=== PATIENT | male | born 1955 | race Caucasian/White ===

== ENCOUNTER 2019-04-07 10:41 | Inpatient (IN) ==
--- NOTE | 2019-03-24 11:26 | Anesthesiology Consultation ---
Date of Service March 24, 2019 Assessment & Plan Chart Review Chart Review: Acceptable Risk for Surgery and Patient NOT seen in Pre Admission Testing Consults Requested medical & cardiac ASA ASA4 Proposed Anesthesia Anesthesia Type: General Anesthesia Line Insertion: Arterial line History Surgery Operation Date: 04/02/19 11:30 Proposed Procedures p Robotic Right Video Assisted Thoracoscopy with Right Lower Lobectomy and Mediastinal Lymphadenectomy - Ethan Byers MD, FACS Height/Weight Height: 5 ft 9 in Weight: 56.245 kg Allergies Allergy/AdvReac Type Severity Reaction Status Date / Time No Known Drug Allergies Allergy Verified 03/24/19 08:34 chocolate AdvReac Mild nose bleeds Uncoded 03/24/19 08:34 Medications Home Medications Medication Instructions Recorded Confirmed Last Taken metoprolol succinate 25 mg PO HS 09/04/18 03/24/19 01/31/19 06:30 lisinopril 10 mg PO QAM 09/26/18 03/24/19 01/30/19 09:00 Antacid 1 dose PO QAM 03/24/19 03/24/19 Unknown Past Medical History Medical History Anemia Chronic obstructive pulmonary disease Depression ETOH abuse HX (Per admission record from 07/2018, pt reported 10-20 beers daily. Heavily counseled on quitting at discharge. Reports quit 07/2018) GERD (gastroesophageal reflux disease) GI bleed 07/2018; S/P INPATIENT EGD/COLONOSCOPY; "RESOLVED" Hearing deficit [place]; no WATTS Hypertension Hyponatremia CHRONIC Lung cancer Stomach ulcer Exercise / Class Metabolic Activity III < 4 Walking/Shop/Light housework Past Family History Family History Other Family history non-contributory Past Surgical History Surgical History History of bronchoscopy WITH BIOPSY (01/2019) AT [facility] History of colonoscopy History of esophagogastroduodenoscopy (EGD) Past Anesthesia History No Hx of Anesthesia Complications and No Family Hx of Anesthesia Complications History of PONV No Hx of PONV and No Hx of Motion Sickness Social History Smoking Status: Current every day smoker tobacco type: cigarettes Smoking cigarettes per day: 1 PPD Do You Dip or Chew Tobacco: No Hx Alcohol Use: Yes (H/O ALCOHOLISM; QUIT 07/2018) Alcohol type: beer alcohol intake frequency: 3 or more drinks per day Hx Substance Use: No substance use type: does not use Testing Electrocardiogram Date: 07/23/18 Findings: + ST @ (at 132;PAC's) Chest X-Ray Date: 01/31/19 Findings: + infiltrate (right lower lung airspace opacity) emphysema
[~2019-04-07 10:41] MED LIST: LR 15ML/HR IV SCH
[2019-04-07] MEDS ORDERED: LR 15ML/HR IV SCH (11:00)
[2019-04-07] MEDS ORDERED: MIDAZOLAM HCL 1 MG/ML 2ML VIAL ONE (11:50)
[2019-04-07] MEDS ORDERED: fentaNYL citrate 100 MCG/2 ML VIAL ONE ×3 (11:50→16:55)
--- NOTE | 2019-04-07 13:03 | History & Physical Bridge Note ---
Date of Service April 07, 2019 History & Physical Bridge Note I have examined the patient, reviewed the History & Physical and in the interval since the performance of the History & Physical I have noted the following changes of clinical significance: no changes noted
[2019-04-07] MEDS ORDERED: KETOROLAC 30 MG/ML VIAL IV PRN (13:07)
[2019-04-07] MEDS ORDERED: LABETALOL HCL IV 5 MG/ML 20ML IV PRN (13:07)
[2019-04-07] MEDS ORDERED: HYDROmorphone INJ 1 MG/ML SYRINGE IV PRN (13:07)
[2019-04-07] MEDS ORDERED: ATROPINE SULFATE 0.1 MG/ML 10ML SYR IV PRN (13:07)
[2019-04-07] MEDS ORDERED: ONDANSETRON INJ 2 MG/ML 2 ML VIAL IV PRN ×2 (13:07→19:39)
[2019-04-07] MEDS ORDERED: CEFAZOLIN 1000MG 1,000 MG/7.5 ML SYR IV STA (13:13)
[2019-04-07] MEDS ORDERED: LIDOCAINE 2% JELLY 5 ML TUBE ONE (13:14)
[2019-04-07] MEDS ORDERED: CEFAZOLIN 1,000 MG/7.5 ML IV PUSH IV ONE (13:15)
[2019-04-07] MEDS ORDERED: BUPIVACAINE 0.5 % 5 MG/1 ML MPF 30ML VIAL ONE (13:24)
[2019-04-07] MEDS ORDERED: BUPIVACAINE LIPOSOME 1.3% 266 MG/20 ML VIAL ONE (13:25)
[2019-04-07] MEDS ORDERED: SODIUM CHLORIDE 0.9% PF 50 ML VIAL ONE (13:25)
[2019-04-07] MEDS ORDERED: PROPOFOL IV EMULSION 10 MG/ML 20 ML VIAL IV ONE (14:40)
[2019-04-07] MEDS ORDERED: LIDOCAINE HCL 2% 2 ML VIAL/AMP(20MG/ML) INFIL ONE (14:40)
[2019-04-07] MEDS ORDERED: ONDANSETRON INJ 2 MG/ML 2 ML VIAL ONE (14:40)
[2019-04-07] MEDS ORDERED: DEXAMETHASONE SOD INJ 4 MG/ML VIAL ONE (14:40)
[2019-04-07] MEDS ORDERED: ROCURONIUM BROMIDE 10 MG/ML 5 ML VIAL ONE ×2 (14:40→15:07)
[2019-04-07] MEDS ORDERED: SODIUM CHLORIDE 0.9% INJ 10 ML VIAL ONE ×2 (16:43)
[2019-04-07] MEDS ORDERED: CEFAZOLIN 250 MG/ML 1 GM VIAL ONE (16:43)
[2019-04-07] MEDS ORDERED: GLYCOPYRROLATE 0.2 MG/ML VIAL ONE (16:55)
[2019-04-07] MEDS ORDERED: NEOSTIGMINE METHYLSULFATE 5 MG/5 ML SYR ONE (16:55)
--- NOTE | 2019-04-07 17:44 | Post Operative Brief Note ---
Immediate Post Op Note v1 Date of Surgery April 07, 2019 Pre & Post Diagnosis Operation Date: 04/07/19 12:00 Pre-Op Diagnosis: Non-Small Lung Cancer, Right Lower Lobe Post-Op Diagnosis: Non-Small Lung Cancer, Right Middle and Lower Lobe Procedure Operation Date: 04/07/19 12:00 Actual Procedures p Robotic Right Video Assisted Thoracoscopy with Right Middle and Lower BiLobectomy and Mediastinal Lymphadenectomy(Right) - Ethan Byers MD, FACS Surgeon Ethan Byers MD, FACS Travel Med Surg Rn April JAMES Estimated Blood Loss 50 Findings Consistent with Post-Op Diagnosis Drains Chest Tube (24Fr) and Barrow Catheter (discontinued at end of case)
[2019-04-07] MEDS ORDERED: METOCLOPRAMIDE HCL INJ 5 MG/ML 2 ML VIAL IV ONE (18:15)
--- NOTE | 2019-04-07 18:17 | XRay Report ---
XR chest 1V portable HISTORY: 63 years-old Male right bi-lobectomy status post right lobectomy COMPARISON: Chest radiograph 01/31/2019, PET CT 01/06/2019 TECHNIQUE: Portable AP view of the chest FINDINGS: Cardiac silhouette is normal in size. Postoperative changes of the right lung with right-sided chest tube terminating adjacent to the right lung apex. Suspected tiny right apical pneumothorax with pleur al separation of approximately 3 mm. Small right pleural effusion with right midlung and right lung b ase opacities. Subcutaneous emphysema noted about the lateral right chest wall. Emphysema with biapic al pleural-parenchymal scarring. Degenerative changes of the shoulders and spine. IMPRESSION: 1. Postoperative changes of the right lung with right-sided chest tube terminating adjacent to the ri ght lung apex. Suspected tiny right apical pneumothorax. 2. Small right pleural effusion with right midlung and right lung base opacities. 3. Emphysema. The above report was generated using voice recognition software. It may contain grammatical, syntax o r spelling errors. Electronically signed by: Reid Valle M.D. 04/07/2019 6:16 PM
[2019-04-07] MEDS ORDERED: PHENYLEPHRINE HCL 10 MG/ML VIAL ONE (18:33)
[2019-04-07] MEDS ORDERED: ePHEDrine sulfate 50 MG/ML SYR ONE (18:33)
[2019-04-07] MEDS ORDERED: PHENYLEPHRINE 100MCG/ML 5ML SYR ONE (18:33)
[2019-04-07] MEDS ORDERED: HYDROmorphone INJ 1 MG/ML SYRINGE ONE (18:40)
--- NOTE | 2019-04-07 18:59 | Anesthesiology Progress Note ---
Date of Service April 07, 2019 Anesthesia Post Procedure Vital Signs Vital Signs: Temp Pulse Pulse Resp BP Pulse Ox 04/07/19 18:50 36.4 C L 74 22 133/80 94 04/07/19 18:40 36.4 C L 70 22 135/92 95 04/07/19 18:30 75 19 143/90 H 98 04/07/19 18:20 80 19 144/97 H 98 04/07/19 18:12 35.5 C L 83 18 156/103 H 100 04/07/19 11:33 36.6 C 78 22 184/107 H 98 Pain Intensity Right Chest: Pain Intensity: 3 Transfer of Care Handoff Completed per policy Notes Mental Status: alert / awake / arousable Patient Amnestic to Procedure: Yes Nausea / Vomiting: adequately controlled Pain: adequately controlled Airway Patency, RR, SpO2: stable & adequate BP & HR: stable & adequate Hydration State: stable & adequate Anesthetic Complications: no major complications apparent and Pt Satisfied with anesthetic care Notes: The patient is awake and his vitals are stable in the PACU.
[2019-04-07] MEDS ORDERED: MoRPHine SULFATE 2 MG/ML CARP IV PRN (19:39)
--- NOTE | 2019-04-07 20:30 | Consultation ---
Date of Consultation April 07, 2019 Assessment & Plan (1) Encounter for postoperative care: 63 y/o M Hx prior ETOH abuse, PUD, HTN, COPD, avid smoker, recent Dx of squamous cell lung CA. Post R lower and mid bilobectomy. The pt is recovering well in the post-op period. He denies CP, SOB, nausea, vomiting, fevers or excessive pain at the surgical site. He was apparently hypothermic post-op as he is on a warming blanket although his temp has since normalized. 1) Post-op - A chest tube is placed and a small post-op pneumothorax is reported on CXR. This will be managed by the thoracic service. Presently his pain is well controlled. Anticoagulation and/or ambulation at the earliest allowable time as he is high risk for DVT 2) COPD - no evidence of exacerbation - PRN inhalers, 02 protocol. 3) HTN - cont Metoprolol lesli-op - hold Lisinopril pending AM labs and assessment 4) PUD - cont PPi 5) Lung CA - f/u with oncology as outpt 6) Hypothermia has resolved with a warming blanket 7) He is aware that he should no longer smoke Total time for this consult including review of labs, meds, imaging, records - discussion with pt and review of surgical notes - 33 min The medical service will follow daily pending DC Present on Admission?: Yes History of Present Illness Requesting Physician: SANDRA Byers Reason for Consultation: Alcoholism - postop Attending Physician: Ethan Byers MD, FACS History of Present Illness 63 y/o M Hx prior ETOH abuse, PUD, HTN, COPD, avid smoker, recent Dx of squamous cell lung CA. Post R lower and mid bilobectomy. The pt is recovering well in the post-op period. He denies CP, SOB, nausea, vomiting, fevers or excessive pain at the surgical site. He was apparently hypothermic post-op as he is on a warming blanket although his temp has since normalized. PMH: 1) Prior ETOH abuse 2) COPD 3) HTN 4) PUD - history of UGI bleed 5) Hyponatremia due to potomania 6) Smoker 7) R lung squamous cell CA Surgical: R lung bilobectomy Social: Smokes 1.5 pack daily. The pt quit drinking early 2017. He would drink 10-20 beers daily for several years. Family: Lung CA Allergies Allergy/AdvReac Type Severity Reaction Status Date / Time No Known Drug Allergies Allergy Verified 04/07/19 11:17 chocolate AdvReac Mild nose bleeds Uncoded 04/07/19 11:17 Home Medications Home Medications Medication Instructions Recorded Confirmed Type metoprolol succinate 25 mg PO HS 09/04/18 04/07/19 History lisinopril 10 mg PO QAM 09/26/18 04/07/19 History Antacid 1 dose PO QAM 03/24/19 04/07/19 History Patient History Medical History Anemia Chronic obstructive pulmonary disease Depression ETOH abuse HX (Per admission record from 07/2018, pt reported 10-20 beers daily. Heavily counseled on quitting at discharge. Reports quit 07/2018) GERD (gastroesophageal reflux disease) GI bleed 07/2018; S/P INPATIENT EGD/COLONOSCOPY; "RESOLVED" Hearing deficit [place]; no WATTS Hypertension Hyponatremia CHRONIC Lung cancer Stomach ulcer Surgical History History of bronchoscopy WITH BIOPSY (01/2019) AT [facility] History of colonoscopy History of esophagogastroduodenoscopy (EGD) Family History Other Family history non-contributory Social History Preferred Language: Georgian Communication Ability: Effective Winder Tender Required: No Beliefs That Will Affect Care: None Current Living Situation: Family Current Living Situation Comment: LIVES WITH BROTHERAMOS Other Information That Helps Us Care for You: No Feels Safe at Home: Yes Safety Concerns: Feels Safe At This Time Smoking Status: Current every day smoker Tobacco Type: cigarettes Cigarettes Per Day: 1 PPD Do You Dip or Chew Tobacco: No Second Hand Exposure: No Tobacco Cessation Education Requested by Patient: No Hx Alcohol Use: Yes (H/O ALCOHOLISM; QUIT 07/2018) Alcohol type: beer Hx Substance Use: No Review of Systems Review of Systems: Gen: Denies fevers post-op ENT: Denies congestion, throat pain, hearing loss Eyes: Denies acute visual changes CV: Denies CP, palpitations Pulmonary: Denies SOB, cough, wheezing GI: Denies N/V, diarrhea, constipation Neuro: Denies acute or unilateral weakness, acute gait impairment, headache or acute visual changes Musculoskeletal: Denies joint pain, inflammation Endocrine: Denies polydipsia, polyuria Skin: Denies acute rashes or ulcers Physical Exam Physical Exam: General: Malnourished-appearing, middle-aged M, AAO x 3, no distress ENT: No erythema or exudates, no thrush Eyes: PIEDAD, EOMI Head and neck: Normocephalic, atraumatic, No JVD, neck is supple, nose is purple and bulbous Chest/heart: Nontender, S1,2, RRR, no murmurs, no gallops Lungs: Very poor air movement on L - no movement detected on R Abdomen: Nontender, nondistended, BS+ Neuro: AAO x 3, speech is clear, no unilateral weakness or loss of sensation, coordination intact Musculoskeletal: No joint inflammation, muscle tenderness, FROM Skin: No acute rashes or ulcers Extremities: No clubbing, cyanosis, edema Results & Data Vital Signs (Past 12 Hours) Vital Signs Temp Pulse Pulse Resp BP Pulse Ox 04/07/19 19:54 96.6 F L 78 18 112/72 90 04/07/19 19:20 94.5 F L 71 18 127/84 93 04/07/19 18:50 97.5 F L 74 22 133/80 94 04/07/19 18:40 97.5 F L 70 22 135/92 95 04/07/19 18:30 75 19 143/90 H 98 04/07/19 18:20 80 19 144/97 H 98 04/07/19 18:12 95.9 F L 83 18 156/103 H 100 04/07/19 11:33 97.9 F 78 22 184/107 H 98 Diagnostic Findings CXR: 1. Postoperative changes of the right lung with right-sided chest tube terminating adjacent to the right lung apex. Suspected tiny right apical pneumothorax. 2. Small right pleural effusion with right midlung and right lung base opacities. 3. Emphysema.
[2019-04-07] MEDS: D5W AND 1/2NSS 1,000 ML IV SCH (20:36)
[2019-04-07] MEDS: METOCLOPRAMIDE HCL INJ 5 MG/ML 2 ML VIAL IV SCH (22:22)
[2019-04-07] MEDS: ACETAMINOPHEN 1,000 MG/100 ML VIAL IV SCH (22:22)
[2019-04-07] MEDS: DOCUSATE SODIUM 100 MG CAP PO SCH (22:23)
[2019-04-07] MEDS: METOPROLOL SUCC 25MG EXT REL TAB PO SCH (22:57)
--- NOTE | 2019-04-08 01:13 | Operative Report ---
DATE OF OPERATION: 04/07/2019 PREOPERATIVE DIAGNOSIS: Squamous cell carcinoma, right lower lobe. POSTOPERATIVE DIAGNOSES: Squamous cell right lower lobe with extension to the right middle lobe. PROCEDURES: 1. Robot-assisted thoracoscopic right middle and lower bilobectomy. 2. Mediastinal lymphadenectomy. SURGEON: Ethan Byers MD WEBLOGIC DEVELOPER: JACOB Barajas (Mr. Castro was present for the entire case and was at the patient's bedside while I was at console). ANESTHESIA: General anesthesia with endotracheal intubation with double lumen tube. INDICATIONS FOR PROCEDURE AND FINDINGS: This patient is a 63-year-old former heavy drinker, who was also a heavy smoker in fact smoking the day of his procedure. The patient was found to have a squamous cell carcinoma of his right lower lobe. I was concerned when I did a staging bronchoscopy. He had N1 disease. I discussed this case at our multidisciplinary cancer conference and it was felt that we should proceed with surgery as it appeared from his lung function that he would tolerate despite his smoking. On 04/07/2019, the patient was brought to the Operating Room and he underwent an uncomplicated robot-assisted thoracoscopic surgical case. The case went very nicely actually; however, upon dissecting out the inferior pulmonary vein in the medial fissure, it appeared that the middle lobe vein and surrounding tissues were involved with the cancer and across the fissure at this point. I did not think we can get a clean resection margin and so I took the middle lobe. He tolerated this well. He did have a small air leak at conclusion of the case. Blood loss was negligible and he was extubated in the room. DESCRIPTION OF PROCEDURE: The patient was brought to Operating Room and laid in supine position. General anesthesia was induced and endotracheal intubation was performed with a double lumen tube. The tube was positioned and I used the scope to evaluate him and quite frankly I thought his airway looked a bit better. I had discussed a possible bilobectomy with him and his family preoperatively. However, at this point, his airways look better than it did when I initially bronchoscoped him when I did my endobronchial ultrasound and navigational bronchoscopy. At any rate, I was hopeful we can get away with a lobectomy because despite the fact he would tolerate the surgery, he still had compromised lung function and was still smoking the day of surgery. After the tube in proper position and arterial and Barrow catheter was placed, the patient was turned in left lateral decubitus position, his right chest was prepped and draped in usual sterile fashion. A camera port was placed a bit posterior to the mid axillary line below the tip of the scapula in the eighth interspace. This was a 12 mm port. Upon going in, we could see we were in the pleural cavity and I did insufflate CO2. He had adhesions of the upper lobe to the apex and he also had adhesions between the lower lobe and the posterior chest wall. These were rather flimsy. An 8 mm port was placed posterior and another 8 mm port was placed interspace above and more medially. A 5 mm port was placed anteriorly just above the diaphragm medially. I then placed an pharmaceutical assistant's port a bit posterior to the mid axillary line. This was a 12 mm port. The instruments were placed and the robot was docked. We then proceeded with the surgery in a rather flash designer fashion. We started off the inferior pulmonary ligament and took this down and got down to the inferior pulmonary vein and kept our dissection posteriorly. I dissected out a level 9 and level 8 nodes. I took out a packet of nodes in the left seven area and also dissected out the level 11 node between the upper lobe and the bronchus intermedius. His fissures were almost complete. Going above, the azygos vein and then dissected at level 2 and 4 packets. There were multiple lymph nodes here. Coming back posteriorly, he really did not have much in the way of level 10 nodes. I did dissect out the veins. Then came along anteriorly down and I was a bit concerned about the inferior pulmonary vein and also the proximity of this tumor to the middle lobe bronchus. The fissure was almost complete so I went ahead and completed this. We dissected out the pulmonary artery and then divided the fissure posterior to this. The bronchus was also dissected out quite nicely posteriorly. I had dissected out the vein posteriorly. Coming back anteriorly, he had marked calcifications of his lymph nodes and it was a difficult dissection from the anterior part of the vein; however, we were able to get around this and divided the vein with Endo-MAIRA stapler. I then went to dissect out the bronchus; however, medially and at the junction of the middle lobe bronchus, there was obvious tumor here. I had dissected out distally to this; however, at this point, I elected to proceed with a bilobectomy especially given my concern to the middle lobe vein as well. I then dissected out the bronchus and care was taken going on the artery to avoid the posterior ascending artery or A3. I then divided the bronchus below the takeoff of the upper lobe bronchus with Endo-MAIRA stapler. This opened up things quite nicely. I then dissected out and identified the inferior pulmonary vein and anteriorly I divided this with the Endo-MAIRA stapler. Care was taken to avoid injury to the remaining vein to the upper lobe. We then were able to divide the fissure without difficulty anteriorly between the upper lobe and middle lobe with Endo-MAIRA staplers. I then fired a stapler across the single large artery just prior to its bifurcation going to the middle lobe. We cleaned up everything but the inferior pulmonary vein. I was a bit concerned about this. So, I opened the pericardium and took it here. I dissected away everything and swept it all up posteriorly. This came out quite nicely. We then put this in an Endobag and extended the pharmaceutical assistant port a bit and then pulled this Endobag out. It should be noted that at the initiation of the case, 266 mg of Exparel mixed with 250 mL of normal saline and 30 mL of 0.5% bupivacaine. This was injected in each of the port sites before we made them and was injected into each of the rib spaces from the 2nd through 11th rib in an intercostal block guided thoracoscopically. After we removed the specimen, there was a defect noted on the anterior aspect of the upper lobe where we had a superficial injury while I was retracting the rather fragile lobe. Using robot and 4-0 Prolene suture, I approximated this and then sprayed Progel over this. This had a minimal leak. We then inflated the lung nicely and he did have a small leak coming from this area, but I did not want to put any more sutures in it. The bronchus looked quite good. We really had no bleeding and really lost very little in the way of blood. A 24-[place] chest tube was directed towards the apex and brought toward the anterior thoracoscopy ports. The robot had been undocked and removed and the arms removed. A 0 Polysorb was used in a running fashion to close the pharmaceutical assistant's incision with its muscle layers as well as a camera port. A 4-0 Monocryl was used in running subcuticular fashion to approximate all the wound edges of all the incisions. He was extubated in the room and had a small air leak. He really looked quite good upon his arrival to the Postanesthesia Care Unit. I attest to the content of the Intraoperative Record and any orders documented therein. Any exception s are noted below.
[2019-04-08] MEDS: OXYCODONE HCL IR 5 MG TAB (IMMEDIATE RELEASE) PO PRN ×3 (03:43→18:12)
[2019-04-08] MEDS: METOCLOPRAMIDE HCL INJ 5 MG/ML 2 ML VIAL IV SCH ×2 (04:01→12:06)
[2019-04-08] MEDS: ACETAMINOPHEN 1,000 MG/100 ML VIAL IV SCH (05:44)
[2019-04-08] MEDS: D5W AND 1/2NSS 1,000 ML IV SCH (05:44)
[2019-04-08 06:06] LABS: Basophils # (auto) 0.01 K/uL (0-0.2); Basophils % (auto) 0.1 %; Eosinophils # (auto) 0.01 K/uL (0-0.5); Eosinophils % (auto) 0.1 %; Hematocrit (blood only) 40.7 % (42-52); Hemoglobin 13.6 g/dL (14.0-18.0); Immature Granulocytes # (auto) 0.03 K/uL (0.00-0.02); Immature Granulocytes % (auto) 0.3 %; Lymphocytes # (auto) 1.54 K/uL (1.2-3.4); Lymphocytes % (auto) 15.8 %; Mean Corpuscular Volume 89.5 fL (80-100); Mean Platelet Volume 10.4 fL (7.4-10.4); Monocytes # (auto) 1.12 K/uL (0.11-0.59); Monocytes % (auto) 11.5 %; Neutrophils # (auto) 7.06 K/uL (1.4-6.5); Neutrophils % (auto) 72.2 %; Platelet Count 130 K/uL (130-400); RDW Coefficient of Variation 13.1 % (11.5-14.5); RDW Standard Deviation 42.8 fL (36.4-46.3); Red Blood Count 4.55 M/uL (4.7-6.1); White Blood Count 9.77 K/uL (4.8-10.8)
[2019-04-08 06:15] LABS: Mean Corpuscular Hgb Conc 33.4 g/dL (32-36); Prothrombin Time 10.7 Seconds (9.0-12.0)
[2019-04-08 06:35] LABS: BUN Creatinine Ratio 13.3 (10-20); Calcium 8.7 mg/dl (8.5-10.1); Est GFR (Non-African American) 89.7; Potassium 4.8 mmol/L (3.5-5.1)
--- NOTE | 2019-04-08 07:21 | XRay Report ---
XR chest 1V portable CLINICAL HISTORY: right bi-lobectomy COMPARISON STUDY: 04/07/2019 FINDINGS: Post thoracotomy changes are present on the right. There is right-sided volume loss. The ri ght-sided chest tube remains unchanged in position. There is decreasing right-sided subcutaneous emph ysema. No pneumothorax is visualized. Minor right basilar opacities, likely representing a combinatio n of atelectatic change in minimal pleural fluid. There is underlying emphysema. There is no focal pu lmonary consolidation on the left.[ IMPRESSION: 1. Postthoracotomy changes on the right with decreasing right-sided subcutaneous emphysema 2. No pneumothorax identified 3. Emphysema 4. Small right pleural effusions with associated basilar airspace opacities likely atelectatic Electronically signed by: Demario Lr M.D. 04/08/2019 7:20 AM
--- NOTE | 2019-04-08 08:13 | Anesthesiology Progress Note ---
Date of Service April 08, 2019 Anesthesia Post Procedure Vital Signs Vital Signs: Temp Pulse Pulse Resp BP Pulse Ox 04/08/19 07:19 36.3 C L 75 20 123/75 95 04/08/19 06:30 94 04/08/19 06:25 85 L 04/08/19 03:25 36.7 C 70 16 101/68 100 04/07/19 23:25 36.3 C L 83 16 91/59 L 98 04/07/19 22:15 76 102/74 04/07/19 21:16 36.5 C 76 16 88/57 L 94 04/07/19 20:24 36.3 C L 76 18 92/58 L 94 04/07/19 19:54 35.9 C L 78 18 112/72 90 04/07/19 19:20 34.7 C L 71 18 127/84 93 04/07/19 18:50 36.4 C L 74 22 133/80 94 04/07/19 18:40 36.4 C L 70 22 135/92 95 04/07/19 18:30 75 19 143/90 H 98 04/07/19 18:20 80 19 144/97 H 98 04/07/19 18:12 35.5 C L 83 18 156/103 H 100 04/07/19 11:33 36.6 C 78 22 184/107 H 98 Pain Intensity Right Chest: Pain Intensity: 4 Transfer of Care Handoff Completed per policy Notes Mental Status: alert / awake / arousable Patient Amnestic to Procedure: Yes Nausea / Vomiting: adequately controlled Pain: adequately controlled Airway Patency, RR, SpO2: stable & adequate BP & HR: stable & adequate Hydration State: stable & adequate Anesthetic Complications: no major complications apparent
[2019-04-08] MEDS: PANTOprazole 40 MG TAB PO SCH (08:47)
[2019-04-08] MEDS: ENOXAPARIN INJ 40 MG/0.4 ML SYR SQ SCH (08:48)
[2019-04-08] MEDS: DOCUSATE SODIUM 100 MG CAP PO SCH ×2 (08:48→23:24)
[2019-04-08] MEDS: LISINOPRIL 10 MG TAB PO SCH (08:48)
[2019-04-08] MEDS ORDERED: LISINOPRIL 10 MG TAB PO SCH (09:00)
[2019-04-08] MEDS ORDERED: LORazepam 0.5 MG TAB PO PRN (10:31)
--- NOTE | 2019-04-08 11:29 | Hospitalist Progress Note ---
Date of Service April 08, 2019 Assessment & Plan (1) History of lobectomy of lung: - S/p right lower and mid bilobectomy on 04/07/19, POD#1. - Pain management and chest tube managemnt per primary team. - DVT ppx with Lovenox 40 mg subQ daily. (2) Acute respiratory failure with hypoxia: - Has been requiring 2-3L via NC post op; on room air at home. - Attempting to wean oxygen as tolerated. (3) Squamous cell lung cancer: - S/p lobectomy as noted above. - Will need to follow up with oncology for further evaluation. (4) COPD (chronic obstructive pulmonary disease): - No evidence of acute exacerbation; smokes 2 PPD at home. - Does not take meds/use inhalers at home. (5) HTN (hypertension): - Continue Metoprolol and Lisinopril as prescribed. (6) History of peptic ulcer disease: - Diagnosed in Jul 2018; H/H has been stable, will monitor. - Continue PPI qAM. - Caution with anticoagulation -- is currently on Lovenox ppx post op. (7) Hypothermia: - Occurred post operatively, now resolved after using warming blanket. (8) Tobacco abuse: - Smokes 2 PPD. - Nicotine patch ordered. - Encourage tobacco cessation. (9) History of ETOH abuse: - Pt. discontinued ETOH use in 2018. (10) DVT prophylaxis: - Lovenox subQ q24hr. Dispo: Pt. is medically stable, will sign off. Please call with any questions. Supervising Physician Co-Signing Physician Notes Attending Attestation: Chart reviewed, care plan d/w JACOB Anderson. I agree w/ the garcia components of her documentation. POD #1 s/p RML/RLL resection by Dr Byers for squamous cell ca. Stable from medical standpoint. Vitals/labs acceptable. Other chronic medical issues stable. Mauro Sosa MD Subjective Pt. complains of pain at site of chest tube insertion. Has mild SOB with exertion. Has been requiring 2-3L via NC -- is on room air at home. Attempting to taper off oxygen as tolerated. Denies chest pain, N/V, constipation or diarrhea. Review of Systems Review of Systems: All systems reviewed & are unremarkable except as noted in HPI & below Constitutional: no fever, no chills, no fatigue and no weakness Respiratory: + dyspnea and + dyspnea on exertion; no cough and no wheezing Cardiovascular: no chest pain, no palpitations, no lightheadedness and no edema Gastrointestinal: no abdominal pain, no nausea, no vomiting, no constipation and no diarrhea/loose stools Genitourinary: no difficulty urinating Musculoskeletal: no back pain and no joint pain Integumentary: no non-healing lesions Allergy / Immunological: no rash Physical Exam Physical Exam: General: In no apparent distress; appears older than stated age. HEENT: NC/AT; PERRLA with EOMI; [address] conjunctiva, MMM. No erythema of posterior pharynx Neck: Supple and nontender Cardiac: RRR w/o murmurs, gallops or rubs Lungs: CTA bilaterally; No rhonchi, wheezing, or rales. Right sided chest pain with serosanguinous output. Abdomen: Bowel normoactive X 4; Nontender to palpation Extremities: Warm. No edema present Neuro: No focal weakness Skin: No rash Results & Data Vital Signs (Past 12 Hours) Vital Signs Temp Pulse Resp BP Pulse Ox 04/08/19 09:09 96 04/08/19 07:19 36.3 C L 75 20 123/75 95 04/08/19 06:30 94 04/08/19 06:25 85 L 04/08/19 03:25 36.7 C 70 16 101/68 100 04/07/19 23:25 36.3 C L 83 16 91/59 L 98 Laboratory Results 04/08/19 04/08/19 04/08/19 Range/Units 05:46 05:46 05:46 WBC 9.77 (4.8-10.8) K/uL RBC 4.55 L (4.7-6.1) M/uL Hgb 13.6 L (14.0-18.0) g/dL Hct 40.7 L (42-52) % MCV 89.5 (80-100) fL MCH 29.9 (25-34) pg MCHC 33.4 (32-36) g/dL RDW Std Deviation 42.8 (36.4-46.3) fL RDW Coeff of Christo 13.1 (11.5-14.5) % Plt Count 130 (130-400) K/uL MPV 10.4 (7.4-10.4) fL Immature Gran % (Auto) 0.3 % Neut % (Auto) 72.2 % Lymph % (Auto) 15.8 % [place] % (Auto) 11.5 % Eos % (Auto) 0.1 % Baso % (Auto) 0.1 % Immature Gran # (Auto) 0.03 H (0.00-0.02) K/uL Neut # (Auto) 7.06 H (1.4-6.5) K/uL Lymph # (Auto) 1.54 (1.2-3.4) K/uL [place] # (Auto) 1.12 H (0.11-0.59) K/uL Eos # (Auto) 0.01 (0-0.5) K/uL Baso # (Auto) 0.01 (0-0.2) K/uL PT 10.7 (9.0-12.0) Seconds INR 1.0 (0.9-1.1) Sodium 135 L (136-145) mmol/L Potassium 4.8 (3.5-5.1) mmol/L Chloride 102 (98-107) mmol/L Carbon Dioxide 27 (21-32) mmol/L Anion Gap 6.0 (3-11) BUN 12 (7-18) mg/dl Creatinine 0.89 (0.6-1.4) mg/dl Est Cr Clr Drug Dosing 62.0 ml/min Est GFR ( Amer) 104.0 Est GFR (Non-Af Amer) 89.7 BUN/Creatinine Ratio 13.3 (10-20) Glucose 133 H (70-99) mg/dl Calcium 8.7 (8.5-10.1) mg/dl Blood Type Antibody Screen Crossmatch 04/07/19 Range/Units 11:01 WBC (4.8-10.8) K/uL RBC (4.7-6.1) M/uL Hgb (14.0-18.0) g/dL Hct (42-52) % MCV (80-100) fL MCH (25-34) pg MCHC (32-36) g/dL RDW Std Deviation (36.4-46.3) fL RDW Coeff of Christo (11.5-14.5) % Plt Count (130-400) K/uL MPV (7.4-10.4) fL Immature Gran % (Auto) % Neut % (Auto) % Lymph % (Auto) % [place] % (Auto) % Eos % (Auto) % Baso % (Auto) % Immature Gran # (Auto) (0.00-0.02) K/uL Neut # (Auto) (1.4-6.5) K/uL Lymph # (Auto) (1.2-3.4) K/uL [place] # (Auto) (0.11-0.59) K/uL Eos # (Auto) (0-0.5) K/uL Baso # (Auto) (0-0.2) K/uL PT (9.0-12.0) Seconds INR (0.9-1.1) Sodium (136-145) mmol/L Potassium (3.5-5.1) mmol/L Chloride (98-107) mmol/L Carbon Dioxide (21-32) mmol/L Anion Gap (3-11) BUN (7-18) mg/dl Creatinine (0.6-1.4) mg/dl Est Cr Clr Drug Dosing ml/min Est GFR ( Amer) Est GFR (Non-Af Amer) BUN/Creatinine Ratio (10-20) Glucose (70-99) mg/dl Calcium (8.5-10.1) mg/dl Blood Type O Positive Antibody Screen NEGATIVE Crossmatch See Detail
[2019-04-08] MEDS: NICOTINE 21 MG/24 HR TDSY TD SCH ×2 (12:05→12:09)
[2019-04-08] MEDS: ACETAMINOPHEN 325 MG TAB PO SCH ×2 (13:49→19:56)
--- NOTE | 2019-04-08 18:19 | Progress Note ---
DATE: 04/08/2019 Mr. Noe was seen today 1 day status post a robot-assisted right thoracoscopic middle and lower bilobectomy and mediastinal lymphadenectomy. He looks great. He has a small air leak. He really has not drained very much over the course of the day. He is on room air. He has some mild wheezing on the right. His x-ray shows appropriate volume loss, but I see no pneumothorax. He is moving air easily. He is ambulating in the hallway and tolerating a diet. He is urinating without difficulty. The patient states that his cravings for tobacco have not been bad. He is quite eager to get home; however, I have been pleasantly surprised at how well he has done.
[2019-04-08] MEDS: METOPROLOL SUCC 25MG EXT REL TAB PO SCH (23:24)
[2019-04-09] MEDS: OXYCODONE HCL IR 5 MG TAB (IMMEDIATE RELEASE) PO PRN (00:30)
[2019-04-09] MEDS: ACETAMINOPHEN 325 MG TAB PO SCH ×4 (01:56→21:10)
--- NOTE | 2019-04-09 07:04 | XRay Report ---
XR chest 1V portable HISTORY: 63 years-old Male right bi-lobectomy follow-up study in a patient with prior pulmonary surg anum COMPARISON: Chest radiograph 04/08/2019 TECHNIQUE: Portable AP view of the chest FINDINGS: Patient is rotated towards the right. Stable positioning of the right-sided chest tube which terminat es adjacent to the right lung apex. Increased amount of subcutaneous emphysema about the right chest wall and right supraclavicular distribution. Postoperative changes of the right lung without definite pneumothorax identified. Small right pleural effusion with associated right basilar opacities. Hyper inflation of the left lung. Emphysema. Cardiomediastinal and hilar silhouettes appear unchanged. Dege nerative changes of the shoulders and spine. IMPRESSION: 1. Postoperative changes about the right lung redemonstrated. 2. Stable positioning of the right-sided chest tube with increased subcutaneous emphysema about the r ight chest wall. 3. Emphysema. 4. Small right pleural effusion with persistent right lung base opacities. The above report was generated using voice recognition software. It may contain grammatical, syntax o r spelling errors. Electronically signed by: Reid Valel M.D. 04/09/2019 7:03 AM
[2019-04-09 08:36] LABS: BUN Creatinine Ratio 13.3 (10-20); Calcium 8.9 mg/dl (8.5-10.1); Creatinine Clr Calc Pharmacy 77.8 ml/min; Est GFR (African American) 114.1; Est GFR (Non-African American) 98.5; Potassium 4.2 mmol/L (3.5-5.1)
[2019-04-09] MEDS: ENOXAPARIN INJ 40 MG/0.4 ML SYR SQ SCH (08:59)
[2019-04-09] MEDS: LISINOPRIL 10 MG TAB PO SCH (08:59)
[2019-04-09] MEDS: DOCUSATE SODIUM 100 MG CAP PO SCH ×2 (09:00→21:11)
[2019-04-09] MEDS: NICOTINE 21 MG/24 HR TDSY TD SCH (09:00)
[2019-04-09] MEDS: PANTOprazole 40 MG TAB PO SCH (10:59)
--- NOTE | 2019-04-09 17:49 | Progress Note ---
DATE: 04/09/2019 Mr. Noe is now 48 hours status post a robot-assisted thoracoscopic right middle and lower bilobectomy. I am quite pleased with him today. He put out a fair amount through his chest tube, but it is serous. He also has an intermittent air leak and only when he coughs. I have explained to him that he is going to be in the hospital for a couple of more days. I discussed this case with Dr. Ej Leyva from pathology. His squamous cell carcinoma is 3.5 cm and we are still waiting for the elastin stain to see whether or not this involved the lamina propria; however, that is not going to make much of a difference as it is a T2a. The interesting part is his lymph nodes. There were multiple lymph nodes and one had direct extension. It is unclear whether this represents a N0 or N1. We will discuss this at our multidisciplinary cancer conference next week. This makes a big difference as he goes from a 1B to a 2B and it would be recommended that he undergo chemotherapy if the node is considered to be involved. At any rate, we will discuss this at the tumor board. I am quite pleased with him, although I am a bit concerned as he is not motivated to walk or to breathe deeply even though we have him on room air today. He alternates between room air and 2 liters. He has some wheezing on the right. He has actually done quite well. We will see how he looks in the next few days and hopefully will be able to get him out of the hospital over the next 48 hours or so. VIJAY
[2019-04-09] MEDS: METOPROLOL SUCC 25MG EXT REL TAB PO SCH (21:10)
[2019-04-10] MEDS: ACETAMINOPHEN 325 MG TAB PO SCH ×4 (01:10→20:48)
[2019-04-10] MEDS ORDERED: ALBUTEROL 0.083% NEBU SOLN 3 ML VIAL NEB STA (04:33)
[2019-04-10] MEDS ORDERED: ALBUTEROL 0.083% NEBU SOLN 3 ML VIAL NEB PRN (04:33)
[2019-04-10] MEDS ORDERED: SODIUM CHLORIDE 0.9% NEBU SOLN 3 ML NEB STA (05:22)
[2019-04-10] MEDS ORDERED: methylPREDNISolone 125 MG/2 ML VIAL IV STA (06:11)
[2019-04-10 06:21] LABS: Hematocrit (blood only) 42.4 % (42-52); Hemoglobin 14.4 g/dL (14.0-18.0); Mean Corpuscular Volume 89.3 fL (80-100); Mean Platelet Volume 10.7 fL (7.4-10.4); Platelet Count 130 K/uL (130-400); RDW Coefficient of Variation 13.2 % (11.5-14.5); RDW Standard Deviation 43.2 fL (36.4-46.3); Red Blood Count 4.75 M/uL (4.7-6.1); White Blood Count 8.48 K/uL (4.8-10.8)
--- NOTE | 2019-04-10 06:27 | XRay Report ---
XR chest 1V portable HISTORY: 63 years-old Male hypoxia acute proximal to COMPARISON: Chest radiograph 04/09/2019 at 6:55 AM TECHNIQUE: Portable AP view of the chest FINDINGS: Study is limited secondary to patient rotation. Stable positioning of the right-sided chest tube whic h terminates adjacent to the right lung apex. Subcutaneous emphysema about the right chest wall has s lightly decreased. Postoperative changes of the right lung without definite pneumothorax identified. Progressive opacification of the right hemithorax with rightward shift of the mediastinal structures suggestive of atelectasis with collapse. Only minimal aerated lung is noted about the right lung apex . Hyperinflation of the left lung with emphysema. Degenerative changes of the shoulders and spine. IMPRESSION: 1. Postoperative changes of the right hemithorax redemonstrated with stable positioning of the right- sided chest tube. 2. Progressive near complete opacification of the right hemithorax with rightward shift of the medias tinal structures suggestive of atelectasis with collapse. 3. No definite pneumothorax identified. 4. Emphysema. The above report was generated using voice recognition software. It may contain grammatical, syntax o r spelling errors. Electronically signed by: Reid Valle M.D. 04/10/2019 6:26 AM
[2019-04-10] MEDS ORDERED: methylPREDNISolone 60 MG in SYRINGE 0 ML IV ONE (06:30)
[2019-04-10] MEDS ORDERED: FUROSEMIDE 20 MG in SYRINGE 0 ML IV ONE (06:30)
[2019-04-10 06:50] LABS: Creatinine Clr Calc Pharmacy 68.2 ml/min; Est GFR (African American) 108.1; Est GFR (Non-African American) 93.3
[2019-04-10] MEDS ORDERED: RAPID SEQUENCE INDUCTION BAG ONE (07:45)
[2019-04-10] MEDS ORDERED: fentaNYL citrate 100 MCG/2 ML VIAL ONE ×2 (07:47→07:59)
[2019-04-10] MEDS ORDERED: MIDAZOLAM HCL 1 MG/ML 2ML VIAL ONE ×2 (07:47→07:59)
--- NOTE | 2019-04-10 07:59 | Progress Note ---
DATE: 04/10/2019 Mr. Noe developed some hypoxemia, although clinically he did not look bad. On 10 liters, he is only 87%. He has decreased breath sounds on the right. A chest x-ray revealed he has complete collapse of his right lung which does not surprise me given his poor effort. His chest tube drainage is down to 210, which was not very much serous. He does not appear to have an air leak, although it is not accurate and his lung is collapsed. We moved him down to the ICU and I discussed this case with Dr. Jason Jensen, our greens tier as well as the staff. We will get him set up and keep him n.p.o. and I will perform a therapeutic bronchoscopy a little bit later today. Otherwise, I am not unhappy with this patient. We did give him with some Lasix in order to diurese him. His BUN and creatinine yesterday were low with a sodium of 135. His blood count today is only 8480 with a stable hemoglobin. We will get him set up for his bronchoscopy and I hope to see re-expansion of his remaining right upper lobe. VIJAY
--- NOTE | 2019-04-10 08:25 | Critical Care Progress Note ---
Date of Service April 10, 2019 Results & Data Vital Signs (Past 12 Hours) Vital Signs Temp Pulse Resp BP Pulse Ox 04/10/19 05:51 87 L 04/10/19 04:48 89 24 88 L 04/10/19 04:26 84 L 04/10/19 04:25 83 L 04/10/19 04:24 36.4 C L 80 18 139/91 81 L 04/10/19 00:12 36.6 C 76 18 157/95 H 95 04/09/19 21:04 78 146/93 H
--- NOTE | 2019-04-10 08:27 | Pre Anesthesia Assessment ---
Date of Service April 10, 2019 Pre Sedation Assessment Vital Signs Temp Pulse Pulse Resp BP Pulse Ox 04/10/19 05:51 87 L 04/10/19 04:48 89 24 88 L 04/10/19 04:26 84 L 04/10/19 04:25 83 L 04/10/19 04:24 36.4 C L 80 18 139/91 81 L 04/10/19 00:12 36.6 C 76 18 157/95 H 95 04/09/19 21:04 78 146/93 H 04/09/19 15:00 36.5 C 76 16 150/79 H 96 04/09/19 11:55 36.4 C L 75 18 148/88 H 98 04/09/19 10:28 92 Pre-Sedation Airway Assessment Smoking Status: Current every day smoker Short, Thick Neck: No Thyromental Distance: < 3.5 Finger Breadths Mallampati Class: I ASA: ASA3 NPO Status Date of Last Intake of Fluids: 04/09/19 Time of Last Intake of Fluids: 21:00 Date of Last Intake of Solid Food: 04/09/19 Time of Last Intake of Solid Foods: 18:00 Notes The planned sedation has been discussed with the patient. Informed Consent was obtained. I have identified the patient, determined the appropriateness of sedation and have assessed the patient immediately prior to the procedure. All medicine(s) and interventions are by my order. Emergent procedural sedation for awake bronchoscopy Planned fentanyl and Versed for sedation, if this progresses to moderate or deep sedation or the patient does not tolerate we are planning to subsequently intubate the patient.
--- NOTE | 2019-04-10 08:28 | Post Anesthesia Assessment ---
Date of Service April 10, 2019 Post Sedation Assessment Vital Signs Temp Pulse Pulse Resp BP Pulse Ox 04/10/19 05:51 87 L 04/10/19 04:48 89 24 88 L 04/10/19 04:26 84 L 04/10/19 04:25 83 L 04/10/19 04:24 36.4 C L 80 18 139/91 81 L 04/10/19 00:12 36.6 C 76 18 157/95 H 95 04/09/19 21:04 78 146/93 H 04/09/19 15:00 36.5 C 76 16 150/79 H 96 04/09/19 11:55 36.4 C L 75 18 148/88 H 98 04/09/19 10:28 92 Recovery Score Activity: Moves 4 extremities Respiration: Deep Breath/Cough Circulation: +/-20% PreAnes Value Consciousness: Fully Awake Oxygen Saturation: O2 needed for >90% Post Anesthesia Score: 9 Post Sedation Plan On clinical assessment, the patient appears to have tolerated the sedation without complications. Patient is recovering as anticipated. Patient will continue to be monitored by nursing and may be discharged when sedation discharge criteria are met per below protocol. Upon Completions of procedure and additional 15 minutes continue every 5 minute vital signs and the P.A.R. score; then discharge to a Phase I or Fast Track to Phase II per the following guidelines: * Discharge Patient to appropriate Phase II area if PAR is 8 or greater or return to pre- procedure baseline. The post - procedure orders will be as directed. * If PAR score is less than 8 or not return to pre-procedure baseline then patient will follow Phase I monitoring till PAR is reached for Phase II. The Phase I may be done in procedure room or may call to secure a Phase I area. * If naloxone or flumazenil are used for reversal, hold in Phase I for continued monitoring from when last reversal dose was given for a minimum of 60 minutes or longer pending the nurse and/or physician discretion of patient condition before discharge to Phase II. Please call the Sedation Physician to re-evaluate and complete post-note for discharge to Phase II area. Patient given 2 mg Versed IV and 50 mcg fentanyl IV initially. Patient required 2 subsequent doses of 25 mcg of fentanyl. Patient remained alert and responsive to verbal commands through entire procedure. He has returned to his baseline vital signs as well as baseline mentation, he is to remain in the ICU as this is his current level of care. Patient tolerated the procedure well Start time 0745 Procedure end time 0800
--- NOTE | 2019-04-10 08:32 | Procedure Note ---
Procedure Note Date of Service April 10, 2019 Procedure date: Noted above Procedure: fiberoptic bronchoscopy Pre-procedure indication: Acute hypoxic respiratory failure, mucoid impaction of bronchi status post right lower lobe middle lobe lobectomy Post-procedure Diagnosis: same as above Prior to Procedure: Informed Consent: Emergent consent implied, patient assented to procedure Attending Staff: April Jensen DO Resident/APC: Not applicable Skin Prep: Not applicable Anesthesia: 100 mcg fentanyl and total given, 2 mg Versed The identity of the patient was confirmed and a bedside time out was performed. Description of Procedure: Fiberoptic bronchoscopy was performed via noninvasive ventilatory mask. Bronchioalveolar lavage was not performed. Findings included: Patient had near total occlusion of the trachea from mucoid impactions originating from the right upper lobe. These thick tenacious white secretions were suctioned, all bronchi of the right upper lobe required suctioning and work clear without evidence of bleeding or further impaction at the end of the procedure. The left lung was largely unremarkable having thin clear secretions. The staple line appeared to be intact with granulation tissue no obvious oozing. Samples were not obtained due to acuity of the procedure and concern for subsequent pneumonitis in the setting of acute hypoxic respiratory failure. Complications: Transient hypotension which responded without intervention Specimens: None. Estimated blood loss: Zero A post procedure chest x-ray has been ordered Coding
--- NOTE | 2019-04-10 08:33 | Critical Care Consultation ---
Date of Consultation April 10, 2019 Assessment & Plan (1) Admitted to intensive care unit: Reason Critically Ill: Concern for low O2 Sats while on both oxymask and nonrebreather. Need for emergent bronchoscopy. NEURO ICU CAM NEGATIVE History of ETOH Abuse- no concern for withdrawal, reports of last drink in 2018 Folic Acid/Thiamine Daily CV HTN: Cont metoprolol 25 mg and Lisinopril 10 mg RESP Acute Hypoxic Respiratory Failure Sats did not respond to oxymask or nonrebreather. Normally on RA at home Emergent Bronchoscopy this AM- mucoid impaction in R residual lung No sample taken / acuity CXR: Improved aeration of the right lung status post bronchoscopy. Sating well on RA s/p Bronch Will start empiric quinolone. 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 Byers recs/management of Chest Tube moving forward COPD H/O smoking 2ppd, now cut down to 6-8cig/day Pt states no other breathing inhaler regimen or medications No concern for acute exacerbation at present H/O Tobacco Abuse Nicotine patch ABD/GI PUD: Cont PPI Protonix 40mg daily RENAL/ Stable Lytes No acute concerns Cont to monitor with daily labs ID No acute concern for infectious etiology Will cont to monitor fever curve HEME Stable H/H. Hemodynamically stable No acute concerns Will cont trend DVT Prophylaxis: Lovenox, Ambulation Full Code Dispo: ICU. Likely Downgrade tomorrow Supervising Physician Co-Signing Physician Notes Dr. Khan was resident physician during care of patient. I separately evaluated patient for garcia portions of the history and the exam. I was present during the critical portion of medical decision making, and I discussed the case with the resident. I generally agree with the findings and plan. Patient with acute mucoid impaction of the residual right long and acute hypoxic respiratory failure requiring emergent bronchoscopy for clearance of secretions. Please refer to procedure note for sedation and procedure details. Sample was not obtained due to acuity of patient's condition, we will empirically start a respiratory quinolone pending EKG evaluation to rule out prolonged QT. Patient critically ill due to acute hypoxic respiratory failure. Patient was also discussed in multidisciplinary rounds, I discussed the case with Dr. Byers I have personally spent 40 minutes of critical care time in the direct management of this patient. This is a life/limb threatening event. This includes time spent evaluating patient, direct bedside care, chart review, placing orders, interpretation of diagnostic studies, discussion with consultants, patient, and/or family members regarding treatment decisions, as well as other required patient management activities. This time is exclusive of all separately billable procedures, and teaching time and separate from and in addition to any other critical care service time. History of Present Illness Attending Physician: Ethan Byers MD, FACS 63 y/o M Hx prior ETOH abuse, PUD, HTN, COPD, avid smoker, recent Dx of squamous cell lung CA. Post R lower and mid bilobectomy. The pt is recovering well in the post-op period. He denies CP, SOB, nausea, vomiting, fevers or excessive pain at the surgical site. He was apparently hypothermic post-op as he is on a warming blanket although his temp has since normalized. See Histories below. In AM of 04/10, reports that pt was sating in low 70s while on oxymask. Pt reported that he only had some SOB, but denied CP, palpitations, or feelings of syncope. Pt was put on nonrebreather and sats were maintained at mid 70s. POC ABG normal except for pO2 35. Pt was taken down to ICU for further breathing management. 1 L output was noted from chest tube. PMH: 1) Prior ETOH abuse 2) COPD 3) HTN 4) PUD - history of UGI bleed 5) Hyponatremia due to potomania 6) Smoker 7) R lung squamous cell CA Surgical: R lung bilobectomy Social: Smokes 1.5 pack daily. The pt quit drinking early 2017. He would drink 10-20 beers daily for several years. Family: Lung CA Allergies Allergy/AdvReac Type Severity Reaction Status Date / Time No Known Drug Allergies Allergy Verified 04/07/19 11:17 chocolate flavor AdvReac Verified 04/08/19 11:04 chocolate AdvReac Mild nose bleeds Uncoded 04/07/19 11:17 Home Medications Home Medications Medication Instructions Recorded Confirmed Type metoprolol succinate 25 mg PO HS 09/04/18 04/07/19 History lisinopril 10 mg PO QAM 09/26/18 04/07/19 History Antacid 1 dose PO QAM 03/24/19 04/07/19 History Patient History Medical History Anemia Chronic obstructive pulmonary disease Depression ETOH abuse HX (Per admission record from 07/2018, pt reported 10-20 beers daily. Heavily counseled on quitting at discharge. Reports quit 07/2018) GERD (gastroesophageal reflux disease) GI bleed 07/2018; S/P INPATIENT EGD/COLONOSCOPY; "RESOLVED" Hearing deficit [place]; no WATTS Hypertension Hyponatremia CHRONIC Lung cancer Stomach ulcer Surgical History History of bronchoscopy WITH BIOPSY (01/2019) AT [facility] History of colonoscopy History of esophagogastroduodenoscopy (EGD) Family History Other Family history non-contributory Social History Preferred Language: Comoran Communication Ability: Effective Medical Malpractice Paralegal Required: No Beliefs That Will Affect Care: None marital status: Single Current Living Situation: Family Current Living Situation Comment: LIVES WITH BROTHERAMOS Other Information That Helps Us Care for You: No Feels Safe at Home: Yes Safety Concerns: Feels Safe At This Time Smoking Status: Current every day smoker Tobacco Type: cigarettes Cigarettes P er Day: 1 PPD Do You Dip or Chew Tobacco: No Second Hand Exposure: No Tobacco Cessation Education Requested by Patient: No Hx Alcohol Use: Yes (H/O ALCOHOLISM; QUIT 07/2018) Alcohol type: beer Hx Substance Use: No Review of Systems Review of Systems: All systems reviewed & are unremarkable except as noted in HPI & below Physical Exam Constitutional: WD/WN, vitals as above Eyes: PERRL, conjunctivae normal, anicteric sclerae ENMT: external ear and nose normal, oropharynx normal Respiratory: normal respiratory effort Auscultation: + rhonchi CT draining serosanguinous fluid Cardiovascular: RRR, no murmur, no edema Gastrointestinal (Abdomen): normal bowel sounds, soft, nontender, no hepatosplenomegaly Skin: no rashes, warm and dry Psychiatric: A+Ox3, euthymic affect Results & Data Vital Signs (Past 12 Hours) Vital Signs Temp Pulse Resp BP Pulse Ox 04/10/19 05:51 87 L 04/10/19 04:48 89 24 88 L 04/10/19 04:26 84 L 04/10/19 04:25 83 L 04/10/19 04:24 36.4 C L 80 18 139/91 81 L 04/10/19 00:12 36.6 C 76 18 157/95 H 95 04/09/19 21:04 78 146/93 H Laboratory Results Laboratory Results - last 24 hr 04/07/19 04/10/19 04/10/19 11:01 06:07 06:07 WBC 8.48 RBC 4.75 Hgb 14.4 Hct 42.4 MCV 89.3 MCH 30.3 MCHC 34.0 RDW Std Deviation 43.2 RDW Coeff of Christo 13.2 Plt Count 130 MPV 10.7 H Sample Site POC pH POC pCO2 POC pO2 POC HCO3 POC Total CO2 POC Base Excess POC ABG O2 Sat Mitul Test O2 Delivery Device POC O2 Rate POC FiO2 IPAP Creatinine 0.81 Est Cr Clr Drug Dosing 68.2 Est GFR ( Amer) 108.1 Est GFR (Non-Af Amer) 93.3 Crossmatch See Detail 04/10/19 07:09 WBC RBC Hgb Hct MCV MCH MCHC RDW Std Deviation RDW Coeff of Christo Plt Count MPV Sample Site R Radial POC pH Pending POC pCO2 Pending POC pO2 Pending POC HCO3 22 POC Total CO2 23 L POC Base Excess -2.0 POC ABG O2 Sat 70.0 L Mitul Test Pass O2 Delivery Device BIPAP POC O2 Rate 12 POC FiO2 100 IPAP 12 Creatinine Est Cr Clr Drug Dosing Est GFR ( Amer) Est GFR (Non-Af Amer) Crossmatch Medications Administered Current Inpatient Medications Acetaminophen (Tylenol) 650 mg PO Q6H ARTEMIO Stop: 05/08/19 13:59 Last Admin: 04/10/19 10:51 Dose: 650 mg Documented by: Albuterol (Ventolin 0.083% 2.5mg/3ml) 2.5 mg NEB Q6R PRN PRN Reason: sob Stop: 05/10/19 04:32 Docusate Sodium (Colace) 100 mg PO BID ARTEMIO Stop: 05/07/19 20:59 Last Admin: 04/10/19 10:48 Dose: 100 mg Documented by: Enoxaparin Sodium (Lovenox) 40 mg SQ QAM ARTEMIO Stop: 05/08/19 08:59 Last Admin: 04/10/19 10:49 Dose: 40 mg Documented by: Lisinopril (Zestril) 10 mg PO [facility] Stop: 05/08/19 08:59 Last Admin: 04/10/19 10:48 Dose: 10 mg Documented by: Lorazepam (Ativan) 0.5 mg PO BID PRN PRN Reason: Anxiety Stop: 05/08/19 10:30 Metoprolol Succinate (Toprol Xl) 25 mg PO [facility] Stop: 05/07/19 20:59 Last Admin: 04/09/19 21:10 Dose: 25 mg Documented by: Miscellaneous (Remove Nicoderm Patch) 1 ea N/A [facility] Stop: 05/08/19 20:59 Last Admin: 04/09/19 21:11 Dose: Not Given Documented by: Morphine Sulfate (Morphine Sulfate) 1 - 2 mg IV Q1H PRN PRN Reason: Pain Stop: 04/21/19 19:38 Nicotine (Nicoderm Cq) 21 mg TD [facility] Stop: 05/08/19 10:59 Last Admin: 04/10/19 10:49 Dose: 21 mg Documented by: Ondansetron HCl (Zofran) 4 mg IV Q4H PRN PRN Reason: Nausea And Vomiting Stop: 05/07/19 19:38 Oxycodone HCl (Roxicodone Immediate Rel) 5 mg PO Q6H PRN PRN Reason: Pain Stop: 04/21/19 19:38 Last Admin: 04/09/19 00:30 Dose: 5 mg Documented by: Pantoprazole Sodium (Protonix) 40 mg PO [facility] Stop: 05/08/19 08:59 Last Admin: 04/10/19 10:51 Dose: 40 mg Documented by: Resident Activity Tracking Resident Involvement: Resident Care Provided Care Provided: Adult Hospital Medicine
[2019-04-10 08:38] LABS: iSTAT Allen Test Pass; iSTAT Arterial Blood Gas HCO3 22 meg/L (19-24); iSTAT Carbon Dioxide 23 mEq/l (24-31); iSTAT FiO2 100 %; iSTAT Site R Radial
[2019-04-10] MEDS ORDERED: LIDOCAINE 4% INH SOLN 4 ML BTL INH ONE (08:57)
--- NOTE | 2019-04-10 09:09 | XRay Report ---
XR chest 1V portable HISTORY: 63 years-old Male s/p bronch status post bronchoscopy. COMPARISON: Chest radiograph of same day at 6:07 AM TECHNIQUE: Portable AP view of the chest FINDINGS: Patient is again slightly rotated. Postoperative changes of the right lung with stable positioning of the right chest tube. No definite pneumothorax identified. There is improved aeration of the right l adore status post bronchoscopy. Persistent mixed opacities are again noted throughout the right lung. E mphysema with hyperexpansion of the left lung redemonstrated. Degenerative changes of the shoulders a nd spine. Subcutaneous emphysema about the right chest wall and supraclavicular distribution redemons trated. IMPRESSION: 1. Improved aeration of the right lung status post bronchoscopy. 2. Otherwise stable findings as above. 3. No pneumothorax. The above report was generated using voice recognition software. It may contain grammatical, syntax o r spelling errors. Electronically signed by: Reid Valle M.D. 04/10/2019 9:07 AM
[2019-04-10] MEDS: LISINOPRIL 10 MG TAB PO SCH (10:48)
[2019-04-10] MEDS: DOCUSATE SODIUM 100 MG CAP PO SCH ×2 (10:48→20:48)
[2019-04-10] MEDS: NICOTINE 21 MG/24 HR TDSY TD SCH (10:49)
[2019-04-10] MEDS: ENOXAPARIN INJ 40 MG/0.4 ML SYR SQ SCH (10:49)
[2019-04-10] MEDS: PANTOprazole 40 MG TAB PO SCH (10:51)
--- NOTE | 2019-04-10 12:37 | Hospitalist Progress Note ---
Date of Service April 10, 2019 Assessment & Plan (1) History of lobectomy of lung: - S/p right lower and mid lobectomy on 04/07/19, POD#3. - Pain and chest tube management per primary team. - DVT ppx with Lovenox 40 mg subQ daily. (2) Acute respiratory failure with hypoxia: - Upgraded to ICU for worsening respiratory failure, O2 saturation <88% on 10L. - Management per CT surgery and ICU. - CXR showed near complete opacification of the right hemithorax with rightward shift of the mediastinal structures suggestive of collapse. - S/p bronch this morning, had near total occlusion of trachea from mucoid impactions originating from right upper lobe. - Repeat CXR showed improved aeration of right lung s/p bronch. - Now weaned to room air, currently stable. (3) Squamous cell lung cancer: - S/p lobectomy as noted above. - Will need to follow up with oncology for further evaluation. (4) COPD (chronic obstructive pulmonary disease): - No evidence of acute exacerbation; smokes 2 PPD at home. - Does not take meds/use inhalers at home. (5) HTN (hypertension): - Continue Metoprolol and Lisinopril as prescribed -- has been hypotensive, consider holding meds if necessary. (6) History of peptic ulcer disease: - Diagnosed in Jul 2018; H/H has been stable. - Continue PPI qAM. - Caution with anticoagulation. (7) Hypothermia: - Resolved after using warming blanket. (8) Tobacco abuse: - Smokes 2 PPD. - Nicotine patch. - Encouraged tobacco cessation. (9) History of ETOH abuse: - Pt. discontinued ETOH use in 2018. (10) DVT prophylaxis: - Lovenox subQ q24hr. Dispo: Upgraded to ICU for further care and evaluation, will follow. Supervising Physician Co-Signing Physician Notes Attending Attestation: Chart reviewed, care plan d/w JACOB Anderson. I agree w/ the garcia components of her documentation. Overnight the patient developed worsening respiratory status and FiO2 requirement. Tx to ICU. Underwent bronchoscopy this am by Dr Jensen - mucoid impaction in trachea and RUL. s/p suctioning with significant improvement. Now back to [place] O2. Other chronic medical issues stable. Mauro Sosa MD Subjective Pt. was upgraded to the ICU for worsening resp failure this morning, was requiring 10L O2. S/p bronchoscopy today. ICU and pulmonary following. He is doing well post op, on room air. Denies SOB, chest pain. Review of Systems Review of Systems: All systems reviewed & are unremarkable except as noted in HPI & below Constitutional: no fever, no chills, no fatigue, no weakness and no anorexia Respiratory: + dyspnea and + dyspnea on exertion; no cough and no wheezing Cardiovascular: no chest pain, no palpitations and no edema Gastrointestinal: no abdominal pain, no nausea, no vomiting, no constipation and no diarrhea/loose stools Genitourinary: no difficulty urinating Musculoskeletal: no back pain and no joint pain Integumentary: no non-healing lesions Allergy / Immunological: no rash Physical Exam Physical Exam: General: In no apparent distress HEENT: NC/AT; PERRLA with EOMI; [place] conjunctiva, MMM. No erythema of posterior pharynx Neck: Supple and nontender Cardiac: RRR Lungs: CTA bilaterally; No rhonchi, wheezing, or rales. Right sided chest tube. Abdomen: Bowel normoactive X 4; Nontender to palpation Extremities: Warm. No edema present Neuro: No focal weakness Skin: No rash Results & Data Vital Signs (Past 12 Hours) Vital Signs Temp Pulse Pulse Resp BP BP Pulse Ox 04/10/19 11:01 90 26 H 135/91 91 04/10/19 10:45 88 24 93/68 L 92 04/10/19 10:30 85 24 99/68 L 92 04/10/19 10:15 80 21 87/62 L 92 04/10/19 10:00 83 24 91/63 L 87 L 04/10/19 09:45 85 24 92/66 L 93 04/10/19 09:15 88 28 H 98/69 L 92 04/10/19 09:00 92 H 22 90/68 L 86 L 04/10/19 08:48 88 24 93/61 L 86 L 04/10/19 08:45 88 20 80/55 L 90 04/10/19 08:42 88 22 80/57 L 90 04/10/19 08:15 95 H 20 93/61 L 90 04/10/19 08:10 92 H 18 94/72 L 99 04/10/19 08:05 105 H 22 91/65 L 99 04/10/19 08:00 98 H 20 113/65 81 L 04/10/19 07:55 95 H 20 77/49 L 68 L 04/10/19 07:50 95 H 16 118/86 72 L 04/10/19 06:50 92 H 26 H 77 L 04/10/19 05:51 87 L 04/10/19 04:48 89 24 88 L 04/10/19 04:26 84 L 04/10/19 04:25 83 L 04/10/19 04:24 36.4 C L 80 18 139/91 81 L Laboratory Results 04/10/19 04/10/19 04/10/19 Range/Units 11:41 07:09 06:07 WBC (4.8-10.8) K/uL RBC (4.7-6.1) M/uL Hgb (14.0-18.0) g/dL Hct (42-52) % MCV (80-100) fL MCH (25-34) pg MCHC (32-36) g/dL RDW Std Deviation (36.4-46.3) fL RDW Coeff of Christo (11.5-14.5) % Plt Count (130-400) K/uL MPV (7.4-10.4) fL Sample Site R Radial POC pH Pending POC pCO2 Pending POC pO2 Pending POC HCO3 22 (19-24) kiesha/L POC Total CO2 23 L (24-31) mEq/l POC Base Excess -2.0 (-9-1.8) kiesha/L POC ABG O2 Sat 70.0 L (90-95) % Mitul Test Pass O2 Delivery Device BIPAP POC O2 Rate 12 POC FiO2 100 % IPAP 12 Creatinine 0.81 (0.6-1.4) mg/dl Est Cr Clr Drug Dosing 68.2 ml/min Est GFR ( Amer) 108.1 Est GFR (Non-Af Amer) 93.3 POC Glucose 125 H (70-99) Crossmatch 04/10/19 04/07/19 Range/Units 06:07 11:01 WBC 8.48 (4.8-10.8) K/uL RBC 4.75 (4.7-6.1) M/uL Hgb 14.4 (14.0-18.0) g/dL Hct 42.4 (42-52) % MCV 89.3 (80-100) fL MCH 30.3 (25-34) pg MCHC 34.0 (32-36) g/dL RDW Std Deviation 43.2 (36.4-46.3) fL RDW Coeff of Christo 13.2 (11.5-14.5) % Plt Count 130 (130-400) K/uL MPV 10.7 H (7.4-10.4) fL Sample Site POC pH POC pCO2 POC pO2 POC HCO3 (19-24) kiesha/L POC Total CO2 (24-31) mEq/l POC Base Excess (-9-1.8) kiesha/L POC ABG O2 Sat (90-95) % Mitul Test O2 Delivery Device POC O2 Rate POC FiO2 % IPAP Creatinine (0.6-1.4) mg/dl Est Cr Clr Drug Dosing ml/min Est GFR ( Amer) Est GFR (Non-Af Amer) POC Glucose (70-99) Crossmatch See Detail
--- NOTE | 2019-04-10 20:10 | Progress Note ---
DATE: 04/10/2019 Mr. Noe was seen this afternoon. While I was in the operating room, Dr. Jason Jensen kindly performed a therapeutic bronchoscopy and did indeed have atelectasis of the right upper lobe due to mucus plugging, which he suctioned out nicely. The patient quickly improved and got back to room air, although he is only satting about 88-90 now. He is moving almost a liter on the incentive spirometer and he is much more enthusiastic about using the incentive spirometer. I did not really see an air leak, but he is still draining some fluid. If the serous drainage continues to be low, I may pull this tube out tomorrow.
[2019-04-10] MEDS: METOPROLOL SUCC 25MG EXT REL TAB PO SCH (20:48)
[2019-04-11] MEDS: ACETAMINOPHEN 325 MG TAB PO SCH ×2 (03:19→09:53)
--- NOTE | 2019-04-11 07:02 | XRay Report ---
XR chest 1V portable CLINICAL HISTORY: bilobectomy COMPARISON STUDY: 04/10/2019 FINDINGS: Postsurgical changes are again evident with the right hemithorax. There is a right-sided ch est tube. There is a 1 cm right apical pneumothorax. There is extensive right-sided subcutaneous emph ysema. There is right-sided volume loss. Interstitial right lung opacities persist. The left lung rem ains clear.[ IMPRESSION: 1. No change the position right-sided chest tube 2. 1 cm right apical pneumothorax 3. Persistent right lung interstitial opacities. Suspected small right pleural effusion. Electronically signed by: Demario Lr M.D. 04/11/2019 7:01 AM
--- NOTE | 2019-04-11 07:53 | Critical Care Progress Note ---
Date of Service April 11, 2019 Assessment & Plan (1) Admitted to intensive care unit: Reason Critically Ill: Concern for low O2 Sats while on both oxymask and nonrebreather. Need for emergent bronchoscopy. NEURO ICU CAM NEGATIVE History of ETOH Abuse- no concern for withdrawal, reports of last drink in 2018 Folic Acid/Thiamine Daily CV HTN: Cont metoprolol 25 mg and Lisinopril 10 mg Paroxysmal Afib Will anticoagulate with Lovenox 50 mg BID, 7.5 mg Coumadin tonight Amiodarone 400mg BID for one week RESP Acute Hypoxic Respiratory Failure Emergent Bronchoscopy 04/11- mucoid impaction in R residual lung No sample taken 12/21 acuity Sating well on RA s/p Bronch Squamous cell Lung Ca s/p R lower and mid bilobectomy 04/07 Pain: Oxycodone/Morphone prn. ARTEMIO tylenol changed to prn Chest Tube removed today CXR: Unchanged small right apical pneumothorax. Persistent right lung opacities with small right pleural effusion Cont encourage incentive spirometry use COPD H/O smoking 2ppd, now cut down to 6-8cig/day Pt states no other breathing inhaler regimen or medications No concern for acute exacerbation at present H/O Tobacco Abuse Nicotine patch ABD/GI PUD: Cont PPI Protonix 40mg daily RENAL/ Stable Lytes No acute concerns Cont to monitor with daily labs ENDO No thyroid or DM concerns ID No acute concern for infectious etiology Will cont to monitor fever curve HEME Stable H/H. Hemodynamically stable No acute concerns Will cont trend DVT Prophylaxis: Lovenox, Ambulation Full Code Dispo: Stable for Downgrade out of ICU onto tele Supervising Physician Co-Signing Physician Notes Dr. Khan was resident physician during care of patient. I separately evaluated patient for garcia portions of the history and the exam. I was present during the critical portion of medical decision making, and I discussed the case with the resident. I generally agree with the findings and plan. stable for downgrade out of ICU. Patient was discussed on multidisciplinary rounds, I discussed the patient's case with Dr. Byers. Subjective 63 y/o M found in chair this AM in NAD. No reports of overnight events. Continually states that he wants to/will go home today. Denies SOB, CP, palpitations, syncope, near syncope. Pt found to have bursts of Afib w/RVR this AM. Otherwise tolerating PO intake. No issues ambulating or voiding. CT with serosanginous drainage. No other acute concerns or complaints. Review of Systems Review of Systems: All systems reviewed & are unremarkable except as noted in HPI & below Physical Exam Constitutional: WD/WN, vitals as above Eyes: PERRL, conjunctivae normal, anicteric sclerae ENMT: external ear and nose normal, oropharynx normal Respiratory: normal respiratory effort Auscultation: + rhonchi Cardiovascular: RRR, no murmur, no edema Gastrointestinal (Abdomen): normal bowel sounds, soft, nontender, no hepatosplenomegaly Skin: no rashes, warm and dry Psychiatric: A+Ox3, euthymic affect Results & Data Vital Signs (Past 12 Hours) Vital Signs Temp Pulse Pulse Resp BP BP Pulse Ox 04/11/19 07:00 95 H 22 98/59 L 91 04/11/19 06:00 81 19 103/61 92 04/11/19 05:00 76 20 118/68 90 04/11/19 04:00 36.8 C 74 19 103/58 L 90 04/11/19 03:00 76 20 100/54 L 90 04/11/19 02:00 69 20 96/61 L 90 04/11/19 01:00 77 22 116/75 89 L 04/11/19 00:00 36.7 C 71 21 105/69 91 04/10/19 23:16 75 04/10/19 23:00 72 19 135/75 92 04/10/19 22:00 77 21 103/67 89 L 04/10/19 21:00 87 19 135/82 90 04/10/19 20:00 36.5 C 87 20 107/59 L 91 Pulse Ox 04/11/19 07:00 04/11/19 06:00 04/11/19 05:00 04/11/19 04:00 90 04/11/19 03:00 04/11/19 02:00 04/11/19 01:00 04/11/19 00:00 91 04/10/19 23:16 04/10/19 23:00 04/10/19 22:00 04/10/19 21:00 04/10/19 20:00 92 Laboratory Results Laboratory Results - last 24 hr 04/10/19 04/10/19 04/10/19 07:30 11:41 20:07 WBC RBC Hgb Hct MCV MCH MCHC RDW Std Deviation RDW Coeff of Christo Plt Count MPV Sodium Potassium Chloride Carbon Dioxide Anion Gap BUN Creatinine Est Cr Clr Drug Dosing Est GFR ( Amer) Est GFR (Non-Af Amer) BUN/Creatinine Ratio Glucose POC Glucose 125 H 118 H Calcium Phosphorus Magnesium Nasal Screen MRSA (PCR) Negative 04/11/19 04/11/19 04/11/19 06:40 08:01 08:01 WBC 12.05 H RBC 4.64 L Hgb 14.3 Hct 40.1 L MCV 86.4 MCH 30.8 MCHC 35.7 RDW Std Deviation 42.5 RDW Coeff of Christo 13.4 Plt Count 150 MPV 10.4 Sodium 134 L Potassium 4.0 Chloride 100 Carbon Dioxide 27 Anion Gap 7.0 BUN 22 H D Creatinine 0.82 Est Cr Clr Drug Dosing 63.0 Est GFR ( Amer) 107.6 Est GFR (Non-Af Amer) 92.8 BUN/Creatinine Ratio 27.2 H Glucose 106 H POC Glucose 108 H Calcium 9.3 Phosphorus Magnesium 1.8 Nasal Screen MRSA (PCR) 04/11/19 08:01 WBC RBC Hgb Hct MCV MCH MCHC RDW Std Deviation RDW Coeff of Christo Plt Count MPV Sodium Potassium Chloride Carbon Dioxide Anion Gap BUN Creatinine Est Cr Clr Drug Dosing Est GFR ( Amer) Est GFR (Non-Af Amer) BUN/Creatinine Ratio Glucose POC Glucose Calcium Phosphorus 2.6 Magnesium Nasal Screen MRSA (PCR) Medications Administered Current Inpatient Medications Acetaminophen (Tylenol) 650 mg PO Q6H PRN PRN Reason: Pain (1-5) Stop: 05/08/19 13:59 Albuterol (Ventolin 0.083% 2.5mg/3ml) 2.5 mg NEB Q6R PRN PRN Reason: sob Stop: 05/10/19 04:32 Amiodarone HCl (Cordarone) 400 mg PO BID [facility] Stop: 04/17/19 21:01 Last Admin: 04/11/19 09:19 Dose: 400 mg Documented by: Docusate Sodium (Colace) 100 mg PO BID [facility] Stop: 05/07/19 20:59 Last Admin: 04/10/19 20:48 Dose: 100 mg Documented by: Enoxaparin Sodium (Lovenox) 50 mg SQ Q12 [facility] Stop: 05/11/19 08:59 Last Admin: 04/11/19 09:20 Dose: 50 mg Documented by: Folic Acid (Folvite) [address] [facility] Stop: 05/11/19 08:59 Last Admin: 04/11/19 09:20 Dose: 400 mcg Documented by: Lisinopril (Zestril) [address] [facility] Stop: 05/08/19 08:59 Last Admin: 04/11/19 09:19 Dose: 10 mg Documented by: Lorazepam (Ativan) 0.5 mg PO BID PRN PRN Reason: Anxiety Stop: 05/08/19 10:30 Metoprolol Succinate (Toprol Xl) [address] [facility] Stop: 05/07/19 20:59 Last Admin: 04/10/19 20:48 Dose: 25 mg Documented by: Miscellaneous (Remove Nicoderm Patch) 1 ea N/A [facility] Stop: 05/08/19 20:59 Last Admin: 04/10/19 20:48 Dose: 1 ea Documented by: Morphine Sulfate (Morphine Sulfate) 1 - 2 mg IV Q1H PRN PRN Reason: Pain Stop: 04/21/19 19:38 Nicotine (Nicoderm Cq) [address] [facility] Stop: 05/08/19 10:59 Last Admin: 04/11/19 09:21 Dose: 21 mg Documented by: Ondansetron HCl (Zofran) 4 mg IV Q4H PRN PRN Reason: Nausea And Vomiting Stop: 05/07/19 19:38 Oxycodone HCl (Roxicodone Immediate Rel) 5 mg PO Q6H PRN PRN Reason: Pain Stop: 04/21/19 19:38 Last Admin: 04/09/19 00:30 Dose: 5 mg Documented by: Pantoprazole Sodium (Protonix) [address] [facility] Stop: 05/08/19 08:59 Last Admin: 04/11/19 09:27 Dose: 40 mg Documented by: Thiamine HCl (Vitamin B-1) [address] [facility] Stop: 05/11/19 08:59 Last Admin: 04/11/19 09:19 Dose: 100 mg Documented by: Warfarin Sodium (Coumadin) 7.5 mg PO TODAY@1600 ONE Stop: 04/11/19 16:01 Resident Activity Tracking Resident Involvement: Resident Care Provided Care Provided: Adult Hospital Medicine
[2019-04-11 08:17] LABS: Hematocrit (blood only) 40.1 % (42-52); Hemoglobin 14.3 g/dL (14.0-18.0); Mean Corpuscular Volume 86.4 fL (80-100); Mean Platelet Volume 10.4 fL (7.4-10.4); Platelet Count 150 K/uL (130-400); RDW Coefficient of Variation 13.4 % (11.5-14.5); RDW Standard Deviation 42.5 fL (36.4-46.3); Red Blood Count 4.64 M/uL (4.7-6.1); White Blood Count 12.05 K/uL (4.8-10.8)
[2019-04-11 08:21] LABS: Mean Corpuscular Hgb Conc 35.7 g/dL (32-36)
--- NOTE | 2019-04-11 08:38 | XRay Report ---
XR chest 1V portable HISTORY: 63 years-old Male tube removal status post removal of the right-sided chest tube COMPARISON: Chest radiograph of same day at 6:43 AM TECHNIQUE: Portable AP view of the chest FINDINGS: Status post removal of the right-sided chest tube. Persistent subcutaneous emphysema about the right chest wall. Persistent 1 cm right apical pneumothorax. Persistent mixed interstitial and alveolar opa cities throughout the right lung with probable small right pleural effusion. Emphysema with hyperexpa nsion of the left lung. Cardiac silhouette appears unchanged. Degenerative changes of the shoulders a nd spine. IMPRESSION: 1. Status post removal of the right-sided chest tube. 2. Unchanged small right apical pneumothorax. 3. Persistent right lung opacities with small right pleural effusion. The above report was generated using voice recognition software. It may contain grammatical, syntax o r spelling errors. Electronically signed by: Reid Valle M.D. 04/11/2019 8:37 AM
[2019-04-11 08:56] LABS: BUN Creatinine Ratio 27.2 (10-20); Calcium 9.3 mg/dl (8.5-10.1); Est GFR (African American) 107.6; Est GFR (Non-African American) 92.8; Magnesium 1.8 mg/dl (1.8-2.4)
[2019-04-11] MEDS: THIAMINE HCL 100 MG TAB PO SCH (09:19)
[2019-04-11] MEDS: LISINOPRIL 10 MG TAB PO SCH (09:19)
[2019-04-11] MEDS: AMIODARONE 200 MG TAB PO SCH ×2 (09:19→20:32)
[2019-04-11] MEDS: ENOXAPARIN INJ 60 MG/0.6 ML SYR SQ SCH ×2 (09:20→20:31)
[2019-04-11] MEDS: FOLIC ACID 400 MCG TAB PO SCH (09:20)
[2019-04-11] MEDS: NICOTINE 21 MG/24 HR TDSY TD SCH (09:21)
[2019-04-11] MEDS: PANTOprazole 40 MG TAB PO SCH (09:27)
[2019-04-11] MEDS ORDERED: ACETAMINOPHEN 325 MG TAB PO PRN (09:30)
[2019-04-11] MEDS: DOCUSATE SODIUM 100 MG CAP PO SCH ×2 (09:54→20:36)
[2019-04-11 11:58] LABS: Prothrombin Time 9.8 Seconds (9.0-12.0)
--- NOTE | 2019-04-11 14:57 | Hospitalist Progress Note ---
Date of Service April 11, 2019 Assessment & Plan (1) History of lobectomy of lung: - S/p right lower and mid lobectomy on 04/07/19, POD#4. - Chest tube was removed at bedside today. - DVT ppx with Lovenox/Warfarin in setting of A. fib. (2) Acute respiratory failure with hypoxia: - Upgraded to ICU for worsening respiratory failure on 04/10, now resolved. - CT surgery and ICU following. - CXR on 04/10 showed near complete opacification of the right hemithorax with rightward shift of the mediastinal structures suggestive of collapse. - S/p repeat bronch on 04/10, had near total occlusion of trachea from mucoid impactions originating from right upper lobe. - CXR this morning showed small right apical pneumothorax, no significant change. - Stable on room air. (3) Paroxysmal atrial fibrillation: - Will start therapeutic anticoagulation therapy -- Lovenox 1 mg/kg BID. - Start Coumadin 7.5 mg this evening. - Amiodarone 400 mg BID for 1 week course. (4) Squamous cell lung cancer: - S/p lobectomy as noted above. - Will need to follow up with oncology for further evaluation. (5) COPD (chronic obstructive pulmonary disease): - No evidence of acute exacerbation; smokes 2 PPD at home. - Does not take meds/use inhalers at home. (6) HTN (hypertension): - Continue Metoprolol and Lisinopril as prescribed. (7) History of peptic ulcer disease: - Diagnosed in Jul 2018; H/H has been stable. - Continue PPI qAM. - Caution with anticoagulation - is currently receiving Lovenox 50 mg BID with Coumadin this evening for A. fib. (8) Hypothermia: - Resolved after using warming blanket. (9) Tobacco abuse: - Smokes 2 PPD. - Nicotine patch. - Encouraged tobacco cessation. (10) History of ETOH abuse: - Pt. discontinued ETOH use in 2018. - Continue folic acid and thiamine daily. (11) DVT prophylaxis: - Lovenox BID. Dispo: ICU and CT surgery following. Supervising Physician Co-Signing Physician Notes Attending Attestation: Chart reviewed, care plan d/w JACOB Anderson. I agree w/ the garcia components of her documentation. Patient stable on small amount of NC O2. Chest tube removed. Labs/vitals acceptable. Chronic medical issues stable. Mauro Sosa MD Subjective Pt. is doing well overall. Denies SOB, chest pain. Is stable on room air. CT surgery is primary service, removed chest tube this morning. Review of Systems Review of Systems: All systems reviewed & are unremarkable except as noted in HPI & below Constitutional: no fever, no chills, no fatigue and no weakness Respiratory: no cough, no dyspnea, no dyspnea on exertion and no wheezing Cardiovascular: no chest pain, no palpitations, no lightheadedness and no edema Gastrointestinal: no abdominal pain, no nausea, no vomiting, no constipation and no diarrhea/loose stools Genitourinary: no difficulty urinating Musculoskeletal: no back pain and no joint pain Integumentary: no non-healing lesions Allergy / Immunological: no rash Physical Exam Physical Exam: General: In no apparent distress HEENT: NC/AT; PERRLA with EOMI; [place] conjunctiva, MMM. No erythema of posterior pharynx Neck: Supple and nontender Cardiac: RRR Lungs: CTA bilaterally; No rhonchi, wheezing, or rales. Dressing over chest tube remova site. Abdomen: Bowel normoactive X 4; Nontender to palpation Extremities: Warm. No edema present Neuro: No focal weakness Skin: No rash Results & Data Vital Signs (Past 12 Hours) Vital Signs Temp Pulse Pulse Resp BP BP Pulse Ox 04/11/19 13:24 89 04/11/19 13:00 89 22 113/69 88 L 04/11/19 12:52 04/11/19 12:01 105 H 22 107/58 L 89 L 04/11/19 11:08 154 H 26 H 114/65 89 L 04/11/19 10:03 04/11/19 10:01 139 H 21 108/76 90 04/11/19 09:00 109 H 17 126/83 90 04/11/19 08:00 36.7 C 92 H 27 H 125/83 92 04/11/19 07:00 95 H 22 98/59 L 91 04/11/19 06:00 81 19 103/61 92 04/11/19 05:00 76 20 118/68 90 04/11/19 04:00 36.8 C 74 19 103/58 L 90 04/11/19 03:00 76 20 100/54 L 90 Pulse Ox 04/11/19 13:24 04/11/19 13:00 04/11/19 12:52 89 L 04/11/19 12:01 04/11/19 11:08 04/11/19 10:03 91 04/11/19 10:01 04/11/19 09:00 04/11/19 08:00 04/11/19 07:00 04/11/19 06:00 04/11/19 05:00 04/11/19 04:00 90 04/11/19 03:00 Laboratory Results 04/11/19 04/11/19 04/11/19 Range/Units 11:27 08:01 08:01 WBC (4.8-10.8) K/uL RBC (4.7-6.1) M/uL Hgb (14.0-18.0) g/dL Hct (42-52) % MCV (80-100) fL MCH (25-34) pg MCHC (32-36) g/dL RDW Std Deviation (36.4-46.3) fL RDW Coeff of Christo (11.5-14.5) % Plt Count (130-400) K/uL MPV (7.4-10.4) fL PT 9.8 (9.0-12.0) Seconds INR 1.0 (0.9-1.1) Sodium 134 L (136-145) mmol/L Potassium 4.0 (3.5-5.1) mmol/L Chloride 100 (98-107) mmol/L Carbon Dioxide 27 (21-32) mmol/L Anion Gap 7.0 (3-11) BUN 22 H D (7-18) mg/dl Creatinine 0.82 (0.6-1.4) mg/dl Est Cr Clr Drug Dosing 63.0 ml/min Est GFR ( Amer) 107.6 Est GFR (Non-Af Amer) 92.8 BUN/Creatinine Ratio 27.2 H (10-20) Glucose 106 H (70-99) mg/dl POC Glucose (70-99) Calcium 9.3 (8.5-10.1) mg/dl Phosphorus 2.6 (2.5-4.9) mg/dl Magnesium 1.8 (1.8-2.4) mg/dl Nasal Screen MRSA (PCR) (Negative) 05/24/19 05/24/19 05/23/19 Range/Units 08:01 06:40 20:07 WBC 12.05 H (4.8-10.8) K/uL RBC 4.64 L (4.7-6.1) M/uL Hgb 14.3 (14.0-18.0) g/dL Hct 40.1 L (42-52) % MCV 86.4 (80-100) fL MCH 30.8 (25-34) pg MCHC 35.7 (32-36) g/dL RDW Std Deviation 42.5 (36.4-46.3) fL RDW Coeff of Christo 13.4 (11.5-14.5) % Plt Count 150 (130-400) K/uL MPV 10.4 (7.4-10.4) fL PT (9.0-12.0) Seconds INR (0.9-1.1) Sodium (136-145) mmol/L Potassium (3.5-5.1) mmol/L Chloride (98-107) mmol/L Carbon Dioxide (21-32) mmol/L Anion Gap (3-11) BUN (7-18) mg/dl Creatinine (0.6-1.4) mg/dl Est Cr Clr Drug Dosing ml/min Est GFR ( Amer) Est GFR (Non-Af Amer) BUN/Creatinine Ratio (10-20) Glucose (70-99) mg/dl POC Glucose 108 H 118 H (70-99) Calcium (8.5-10.1) mg/dl Phosphorus (2.5-4.9) mg/dl Magnesium (1.8-2.4) mg/dl Nasal Screen MRSA (PCR) (Negative) 04/10/19 Range/Units 07:30 WBC (4.8-10.8) K/uL RBC (4.7-6.1) M/uL Hgb (14.0-18.0) g/dL Hct (42-52) % MCV (80-100) fL MCH (25-34) pg MCHC (32-36) g/dL RDW Std Deviation (36.4-46.3) fL RDW Coeff of Christo (11.5-14.5) % Plt Count (130-400) K/uL MPV (7.4-10.4) fL PT (9.0-12.0) Seconds INR (0.9-1.1) Sodium (136-145) mmol/L Potassium (3.5-5.1) mmol/L Chloride (98-107) mmol/L Carbon Dioxide (21-32) mmol/L Anion Gap (3-11) BUN (7-18) mg/dl Creatinine (0.6-1.4) mg/dl Est Cr Clr Drug Dosing ml/min Est GFR ( Amer) Est GFR (Non-Af Amer) BUN/Creatinine Ratio (10-20) Glucose (70-99) mg/dl POC Glucose (70-99) Calcium (8.5-10.1) mg/dl Phosphorus (2.5-4.9) mg/dl Magnesium (1.8-2.4) mg/dl Nasal Screen MRSA (PCR) Negative (Negative)
[2019-04-11] MEDS ORDERED: WARFARIN SOD 7.5 MG TAB PO ONE (16:00)
--- NOTE | 2019-04-11 16:08 | XRay Report ---
XR chest 1V portable CLINICAL HISTORY: LOW SPO2 hypoxia COMPARISON STUDY: 04/11/2019 8:30 AM FINDINGS: Very small right apical pneumothorax with a maximum pleural separation of 8 mm. Slightly in creased density right hemithorax which may be positional due to the patient's severe rotation to the right. Subcutaneous emphysematous change is stable. Mild hyperaeration of the left hemithorax. IMPRESSION: Small right apical pneumothorax.. 2. This is essentially unchanged from the prior study. 3. Persistent increased density right hemithorax with unchanging subcutaneous emphysema right chest. The above report was generated using voice recognition software. It may contain grammatical, syntax or spelling errors. Electronically signed by: Ji Stewart M.D. 04/11/2019 4:07 PM
--- NOTE | 2019-04-11 20:19 | Progress Note ---
DATE: 04/11/2019 Mr. Noe was seen today on 04/11/2019. He is now postoperative day #4 from his robot-assisted thoracoscopic right lower and middle bilobectomy. Patient has x-ray shows expansion of his lung. He did not put out much through his chest tube over the last 16 hours, so I removed it. His x-ray looked quite good afterwards. He has got 91% saturations and is not tachypneic. However, he is now in atrial fibrillation. Heart rate is not very well controlled. He has no wheezing and Dr. Jensen had started him on amiodarone and he is on Lopressor. Blood pressure has been relatively stable. We will have him ambulate despite his atrial fibrillation; this is important, if he really does not have symptoms from this. The patient really wants to go home, which was an issue as he does not quite understand the gravity of this. We are going to move him to telemetry and have him ambulate.
[2019-04-11] MEDS: METOPROLOL SUCC 25MG EXT REL TAB PO SCH (20:33)
[2019-04-12 06:48] LABS: Basophils # (auto) 0.02 K/uL (0-0.2); Basophils % (auto) 0.2 %; Eosinophils % (auto) 1.2 %; Hematocrit (blood only) 37.4 % (42-52); Hemoglobin 13.4 g/dL (14.0-18.0); Immature Granulocytes # (auto) 0.01 K/uL (0.00-0.02); Immature Granulocytes % (auto) 0.1 %; Lymphocytes # (auto) 1.93 K/uL (1.2-3.4); Mean Corpuscular Hgb Conc 35.8 g/dL (32-36); Mean Platelet Volume 10.4 fL (7.4-10.4); Monocytes # (auto) 1.09 K/uL (0.11-0.59); Neutrophils # (auto) 5.24 K/uL (1.4-6.5); Neutrophils % (auto) 62.5 %; Platelet Count 145 K/uL (130-400); RDW Coefficient of Variation 13.3 % (11.5-14.5); RDW Standard Deviation 42.4 fL (36.4-46.3); White Blood Count 8.39 K/uL (4.8-10.8)
--- NOTE | 2019-04-12 07:06 | XRay Report ---
XR chest 1V portable CLINICAL HISTORY: bilobectomy COMPARISON STUDY: 08/03/2019 FINDINGS: Unchanging post procedural change right hemithorax. Small residual right apical pneumothora x unchanged. Subcutaneous emphysematous change also similar. Left lung remains clear. IMPRESSION: 1. Small stable right apical pneumothorax. 2. Unchanging postoperative changes right hemithorax with unchanging subcutaneous emphysematous [place]. The above report was generated using voice recognition software. It may contain grammatical, syntax or spelling errors. Electronically signed by: Ji Stewart M.D. 04/12/2019 7:04 AM
[2019-04-12 07:18] LABS: Albumin Level 2.6 gm/dl (3.4-5.0); BUN Creatinine Ratio 25.7 (10-20); Calcium 8.5 mg/dl (8.5-10.1); Creatinine Clr Calc Pharmacy 65.7 ml/min; Est GFR (African American) 107.6; Est GFR (Non-African American) 92.8; Potassium 3.8 mmol/L (3.5-5.1)
[2019-04-12 07:20] LABS: Albumin Globulin Ratio 0.7 (0.9-2); Bilirubin,Total 0.8 mg/dl (0.2-1); Total Protein 6.6 gm/dl (6.4-8.2)
[2019-04-12] MEDS: THIAMINE HCL 100 MG TAB PO SCH (08:06)
[2019-04-12] MEDS: NICOTINE 21 MG/24 HR TDSY TD SCH (08:06)
[2019-04-12] MEDS: AMIODARONE 200 MG TAB PO SCH ×2 (08:08→19:33)
[2019-04-12] MEDS: FOLIC ACID 400 MCG TAB PO SCH (08:08)
[2019-04-12] MEDS: PANTOprazole 40 MG TAB PO SCH (08:08)
[2019-04-12] MEDS: LISINOPRIL 10 MG TAB PO SCH (08:09)
[2019-04-12] MEDS: ENOXAPARIN INJ 60 MG/0.6 ML SYR SQ SCH (08:09)
[2019-04-12] MEDS: DOCUSATE SODIUM 100 MG CAP PO SCH ×2 (08:15→19:35)
--- NOTE | 2019-04-12 09:10 | Progress Note ---
DATE: 04/12/2019 Mr. Noe is now postop day #5 status post a robot-assisted thoracoscopic right middle and lower bilobectomy. He has some issues with hypoxemia and with atrial fibrillation postop, but looks much better today. He is back in a sinus rhythm with a rate in the 70s and 80s. Blood pressure is stable. On 2 liters, he is 93%. He has been eating better. He is ambulating in the hallway, although he states he gets "short of breath since I stopped smoking." He has been afebrile. His cough is much improved, and surprisingly, he got 2000 mL on the incentive spirometer this morning. X-ray shows a tiny pneumothorax which are not concerned about. He is also turned which makes it difficult to assess his right lung well, but I think that overall he sounds better except for some rhonchi. He looks better to me. ASSESSMENT AND PLAN: Postoperative day #5 status post robot-assisted thoracoscopic right middle and lower bilobectomy. I am going to tentatively let him go tomorrow. We may send him home on oxygen. I have to say I am impressed that this patient is done as well as he has with several significant comorbidities. VIJAY
--- NOTE | 2019-04-12 12:08 | Hospitalist Progress Note ---
Date of Service April 12, 2019 Assessment & Plan (1) History of lobectomy of lung: - S/p right lower and mid lobectomy on 04/07/19, POD#5. - Chest tube was removed at bedside on 04/11/19. - DVT ppx: start Xarelto 10 mg PO daily. (2) Acute respiratory failure with hypoxia: - Upgraded to ICU for worsening respiratory failure on 04/10, now resolved. - CT surgery and ICU following. - CXR on 04/10 showed near complete opacification of the right hemithorax with rightward shift of the mediastinal structures suggestive of collapse. - S/p repeat bronch on 04/10, had near total occlusion of trachea from mucoid impactions originating from right upper lobe. - Most recent CXR showed small stable right pneumothorax. - Currently requiring 2L via NC -- will likely require 2-step and oxygen at discharge. (3) Paroxysmal atrial fibrillation: - Continue telemetry, now in normal sinus rhythm. - Start Xarelto 10 mg daily for anticoagulation. - Amiodarone 400 mg BID - will likely need to continue this medication for 1 month. (4) Squamous cell lung cancer: - S/p lobectomy as noted above. - Will need to follow up with oncology as outpatient. (5) COPD (chronic obstructive pulmonary disease): - No evidence of acute exacerbation; smokes 2 PPD at home. - Does not take meds/use inhalers at home. (6) HTN (hypertension): - Continue Metoprolol and Lisinopril as prescribed. (7) History of peptic ulcer disease: - Diagnosed in Jul 2018; H/H has been stable. - Continue PPI qAM. - Caution with anticoagulation - started Xarelto daily. (8) Hypothermia: - Resolved after using warming blanket. (9) Tobacco abuse: - Smokes 2 PPD. - Nicotine patch. - Encouraged tobacco cessation. (10) History of ETOH abuse: - Pt. discontinued ETOH use in 2018. - Continue folic acid and thiamine daily. (11) DVT prophylaxis: - Start Xarelto. Dispo: Will continue to follow, please call with any questions. Supervising Physician Co-Signing Physician Notes Attending Attestation: Chart reviewed, care plan d/w JACOB Anderson. I agree w/ the garcia components of her documentation. Xarelto for PAF to be resumed today. Attempting to wean O2 - may need 2-step prior to discharge. Doing well from surgical standpoint. Mauro Sosa MD Subjective Pt. is doing well overall. Complains of SOB with exertion, denies SOB at rest. Was previously on room air, now requiring 2L via NC. CT surgery following, possible discharge on 04/13/19. Discussed tobacco cessation in the room -- pt. plans on quitting following discharge. Review of Systems Review of Systems: All systems reviewed & are unremarkable except as noted in HPI & below Constitutional: no fever, no chills, no fatigue, no weakness and no anorexia Respiratory: + dyspnea on exertion; no cough, no dyspnea and no wheezing Cardiovascular: no chest pain, no palpitations, no lightheadedness and no edema Gastrointestinal: no abdominal pain, no nausea, no vomiting, no constipation and no diarrhea/loose stools Genitourinary: no difficulty urinating Musculoskeletal: no back pain and no joint pain Integumentary: no non-healing lesions Allergy / Immunological: no rash Physical Exam Physical Exam: General: In no acute distress. HEENT: NC/AT; PERRLA with EOMI; [place] conjunctiva, MMM. No erythema of posterior pharynx Neck: Supple and nontender Cardiac: RRR Lungs: on 2L via NC; CTA bilaterally; No rhonchi, wheezing, or rales. Abdomen: Bowel normoactive X 4; Nontender to palpation Extremities: Warm. No edema present Neuro: No focal weakness Skin: No rash Results & Data Vital Signs (Past 12 Hours) Vital Signs Temp Pulse Pulse Resp BP BP Pulse Ox 04/12/19 11:37 36.7 C 78 20 99/67 L 96 04/12/19 07:10 36.7 C 79 20 115/73 93 04/12/19 04:04 36.9 C 74 17 116/71 95 04/12/19 00:20 37.3 C 84 17 111/70 95 Laboratory Results 04/12/19 04/12/19 Range/Units 06:17 06:17 WBC 8.39 (4.8-10.8) K/uL RBC 4.30 L (4.7-6.1) M/uL Hgb 13.4 L (14.0-18.0) g/dL Hct 37.4 L (42-52) % MCV 87.0 (80-100) fL MCH 31.2 (25-34) pg MCHC 35.8 (32-36) g/dL RDW Std Deviation 42.4 (36.4-46.3) fL RDW Coeff of Christo 13.3 (11.5-14.5) % Plt Count 145 (130-400) K/uL MPV 10.4 (7.4-10.4) fL Immature Gran % (Auto) 0.1 % Neut % (Auto) 62.5 % Lymph % (Auto) 23.0 % [place] % (Auto) 13.0 % Eos % (Auto) 1.2 % Baso % (Auto) 0.2 % Immature Gran # (Auto) 0.01 (0.00-0.02) K/uL Neut # (Auto) 5.24 (1.4-6.5) K/uL Lymph # (Auto) 1.93 (1.2-3.4) K/uL [place] # (Auto) 1.09 H (0.11-0.59) K/uL Eos # (Auto) 0.10 (0-0.5) K/uL Baso # (Auto) 0.02 (0-0.2) K/uL Sodium 133 L (136-145) mmol/L Potassium 3.8 (3.5-5.1) mmol/L Chloride 100 (98-107) mmol/L Carbon Dioxide 29 (21-32) mmol/L Anion Gap 4.0 (3-11) BUN 21 H (7-18) mg/dl Creatinine 0.82 (0.6-1.4) mg/dl Est Cr Clr Drug Dosing 65.7 ml/min Est GFR ( Amer) 107.6 Est GFR (Non-Af Amer) 92.8 BUN/Creatinine Ratio 25.7 H (10-20) Glucose 91 (70-99) mg/dl Calcium 8.5 (8.5-10.1) mg/dl Total Bilirubin 0.8 (0.2-1) mg/dl AST 23 (15-37) U/L ALT 18 (12-78) U/L Alkaline Phosphatase 81 (45-117) U/L Total Protein 6.6 (6.4-8.2) gm/dl Albumin 2.6 L (3.4-5.0) gm/dl Globulin 4.0 (2.5-4.0) gm/dl Albumin/Globulin Ratio 0.7 L (0.9-2)
[2019-04-12] MEDS ORDERED: RIVAROXABAN 10 MG TABLET PO SCH (18:00)
[2019-04-12] MEDS: METOPROLOL SUCC 25MG EXT REL TAB PO SCH (19:32)
[2019-04-13] MEDS: AMIODARONE 200 MG TAB PO SCH (07:58)
[2019-04-13] MEDS: PANTOprazole 40 MG TAB PO SCH (07:58)
[2019-04-13] MEDS: THIAMINE HCL 100 MG TAB PO SCH (07:58)
[2019-04-13] MEDS: LISINOPRIL 10 MG TAB PO SCH (07:59)
[2019-04-13] MEDS: FOLIC ACID 400 MCG TAB PO SCH (07:59)
[2019-04-13] MEDS: DOCUSATE SODIUM 100 MG CAP PO SCH (08:00)
[2019-04-13] MEDS: NICOTINE 21 MG/24 HR TDSY TD SCH (08:00)
--- NOTE | 2019-04-13 10:36 | Hospitalist Progress Note ---
Date of Service April 13, 2019 Assessment & Plan (1) History of lobectomy of lung: - S/p right lower and mid lobectomy on 04/07/19, POD#6. - Chest tube was removed at bedside on 04/11/19. - DVT ppx: Xarelto 10 mg PO daily. (2) Acute respiratory failure with hypoxia: - Upgraded to ICU for worsening respiratory failure on 04/10, now resolved. - CXR on 04/10 showed near complete opacification of the right hemithorax with rightward shift of the mediastinal structures suggestive of collapse. - S/p repeat bronch on 04/10, had near total occlusion of trachea from mucoid impactions originating from right upper lobe. - Repeat CXR from this morning is pending. - Currently requiring 2L via NC -- will require 2L via NC with activity following discharge. (3) Paroxysmal atrial fibrillation: - Continue telemetry, in normal sinus rhythm with occasional PACs on monitor. - Started Xarelto 10 mg daily for anticoagulation. - Amiodarone 400 mg BID - will likely need to continue this medication for 1 month. (4) Squamous cell lung cancer: - S/p lobectomy as noted above. - Will need to follow up with oncology as outpatient. (5) COPD (chronic obstructive pulmonary disease): - No evidence of acute exacerbation; smokes 2 PPD at home. - Does not take meds/use inhalers at home. (6) HTN (hypertension): - Continue Metoprolol and Lisinopril as prescribed. (7) History of peptic ulcer disease: - Diagnosed in Jul 2018; H/H has been stable. - Continue PPI qAM. - Caution with anticoagulation - on Xarelto daily. (8) Hypothermia: - Resolved after using warming blanket. (9) Tobacco abuse: - Smokes 2 PPD. - Nicotine patch. - Encouraged tobacco cessation. (10) History of ETOH abuse: - Pt. discontinued ETOH use in 2018. - Continue folic acid and thiamine daily. (11) DVT prophylaxis: - Xarelto. Dispo: Pt. is medically stable for discharge, will sign off. Supervising Physician Co-Signing Physician Notes Attending Attestation: Chart reviewed, care plan d/w JACOB Anderson. I agree w/ the garcia components of her documentation. Overnight patient required ICU transfer due to acute respiratory failure. S/p bronch this am by Dr Jensen - large mucoid impaction in the trachea leading to the RUL. Following bronch patient weaned to NC O2. Other medical issues stable. Muaro Sosa MD Subjective Pt. is doing well overall. Has been requiring 1.5-2L via NC. Denies SOB at rest, has SOB with exertion. Having regular BMs, denies urinary retention. Discharge planning per Dr. Byers. Review of Systems Review of Systems: All systems reviewed & are unremarkable except as noted in HPI & below Constitutional: no fever, no chills, no fatigue, no weakness and no anorexia Respiratory: + dyspnea on exertion; no cough, no dyspnea and no wheezing Cardiovascular: no chest pain, no palpitations and no edema Gastrointestinal: no abdominal pain, no nausea, no vomiting, no constipation and no diarrhea/loose stools Genitourinary: no difficulty urinating Musculoskeletal: no back pain and no joint pain Integumentary: no non-healing lesions Allergy / Immunological: no rash Physical Exam Physical Exam: General: In no acute distress. HEENT: NC/AT; PERRLA with EOMI; [place] conjunctiva, MMM. No erythema of posterior pharynx Neck: Supple and nontender Cardiac: RRR Lungs: on 2L via NC; CTA bilaterally Abdomen: Bowel normoactive X 4; Nontender to palpation Extremities: Warm. No edema present Neuro: No focal weakness Skin: No rash Results & Data Vital Signs (Past 12 Hours) Vital Signs Temp Pulse Pulse Pulse Resp BP Pulse Ox 04/13/19 07:30 37 C 81 20 113/71 91 04/13/19 03:41 37.2 C 85 18 106/62 95 04/12/19 23:20 37.2 C 79 17 105/67 94 04/12/19 23:08 77
--- NOTE | 2019-04-13 10:45 | XRay Report ---
XR chest 2V routine HISTORY: s/p lobectomy COMPARISON: Chest 04/12/2019. FINDINGS: Stable small right pneumothorax demonstrating a pleural gap of 11 mm. Right lung airspace o pacities have slightly improved. Stable right mediastinal shift consistent with postoperative change. Right chest wall subcutaneous emphysema persists. Emphysema. The left lung is clear. Small right ple ural effusion, unchanged. IMPRESSION: No change in the small right hydropneumothorax. The right lung airspace opacities have slightly impro donald. Electronically signed by: Kevin Murray M.D. 04/13/2019 10:44 AM
--- NOTE | 2019-04-14 00:31 | Discharge Summary ---
DISCHARGE DIAGNOSES: 1. Squamous cell carcinoma, right lower lobe (T2N1M0) stage 2B carcinoma. 2. Long history of cigarette smoking with coronary artery disease. 3. Transient atrial fibrillation. 4. Long history of alcohol use although quit several months ago. 5. Hypertension. 6. Hypoxemia. HOSPITAL COURSE: This is a 63-year-old heavy smoker and drinker, who quit drinking several months ago. He did not go through withdrawals. The patient was smoking more than a pack of cigarettes a day, but quit the day he came in. He is found to have a squamous cell carcinoma of his right lower lobe. On 04/07/2019, the patient underwent an uncomplicated robot-assisted thoracoscopic right lower and middle bilobectomy with mediastinal lymphadenectomy. This went surprisingly well. The tumor did extend up to the right middle lobe and we did a bilobectomy, but we had clean resection margins. A total of 17 lymph nodes were removed and there was 1 involved with contiguous spread. 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 The patient did surprisingly well. He had a bit of an air leak. He then collapsed his lung postoperatively requiring a transfer back to the Intensive Care Unit with a therapeutic bronchoscopy, but he did well after that. He also had a brief outburst of atrial fibrillation which was controlled. He had been loaded with amiodarone prior to his departure. Finally, on postoperative day #6, he looked so good that we allowed him to leave. He required oxygen. His 2-step showed his oxygen level at 84% while ambulating in the hallway. He needed 3 liters to get over 90. At this point, we are sending him home on 3 liters of O2. In addition, we are going to send him home on Xarelto although at a lower dose as well as amiodarone, but only for a month. We will discontinue that after a month or so as long as he remains stable. Home health will see him. I inspected all of his incisions. He is still draining a bit from his access incision, but we will have home care inspect this. I suspect this will stop. His x-ray looked better when he was discharged. He sounded better. He was a high risk patient, but did surprisingly well.
[2019-04-15 11:12] LABS: iSTAT Art Bld Gas pCO2 Correct 32 mmHg (35-46); iSTAT Arterial Blood Gas pCO2 32 mmHg (35-46); iSTAT Arterial Blood Gas pH 7.45 (7.35-7.45)
--- NOTE | 2019-04-16 12:10 | Coding Query ---
CODING QUERY To promote full compliance with coding requirements relating to patient care, provider participation is requested in all cases of tree specialist uncertainty. Please assist us with the question(s) below: Coding Question(s): Patient s/p bilobectomy. Progress note documents postop pneumothorax. Please check the phrase that applies to the postoperative pneumothorax. Thanks for your help! MARIO Nicole [facility] Physician's Response(s): __X The postoperative pneumothorax is an expected outcome The postoperative pneumothorax is a postoperative complication Cannot clinicallycorrelate if the postoperative pneumothorax is an expected outcome or complicatoin Other/ Please document: Principal Diagnosis: "that condition established after study, to be chiefly responsible for occasioning the admission of the patient to the hospital for care." Co-Existing Principal Diagnosis: "when two or more diagnoses equally meet the criteria for principal diagnosis as determined by the circumstances of admission, diagnostic work up, and/or therapy provided, and the Alphabetic Index, Tabular List, or another coding guideline does not provide sequencing direction, any one of the diagnoses may be sequenced first." "When the physician has documented what appears to be a current diagnosis in the body of the record, but has not included the diagnosis in the final diagnostic statement, the physician should be asked whether the diagnosis should be added." ([facility] 2 QTR90. p3-4) VIJAY
--- NOTE | 2019-04-16 12:14 | Coding Query ---
CODING QUERY To promote full compliance with coding requirements relating to patient care, provider participation is requested in all cases of patternmaker hand uncertainty. Please assist us with the question(s) below: Coding Question(s): Patient is postoperative bilobectomy for lung malignancy. Progress notes document intermittent postop air leak. Please check the phrase that applies to the postop air leak. Thanks for your help! MARIO Cullen [facility] Physician's Response(s): _X___ The Intermittent postop airleak is an expected occurrence postop The intermittent postop airleak is a complication of the procedure Cannot determine if the postop airleak is a complication or expected occurrence Other: please document: Principal Diagnosis: "that condition established after study, to be chiefly responsible for occasioning the admission of the patient to the hospital for care." Co-Existing Principal Diagnosis: "when two or more diagnoses equally meet the criteria for principal diagnosis as determined by the circumstances of admission, diagnostic work up, and/or therapy provided, and the Alphabetic Index, Tabular List, or another coding guideline does not provide sequencing direction, any one of the diagnoses may be sequenced first." "When the physician has documented what appears to be a current diagnosis in the body of the record, but has not included the diagnosis in the final diagnostic statement, the physician should be asked whether the diagnosis should be added." ([facility] 2 QTR90. p3-4) VIJAY
== END 2019-04-13 14:20 | disposition home health service (06) | DRG 163 ==
LOC: ASU 10:41 → 3W 17:55 → 1E 04-10 07:28 → 2S 04-11 22:08
DX: Z80.1 Family history of malignant neoplasm of trachea, bronchus and lung; J98.09 Other diseases of bronchus, not elsewhere classified; J96.01 Acute respiratory failure with hypoxia; J93.82 Other air leak; J93.83 Other pneumothorax; F17.210 Nicotine dependence, cigarettes, uncomplicated; J90 Pleural effusion, not elsewhere classified; J43.9 Emphysema, unspecified; R68.0 Hypothermia, not associated with low environmental temperature; I48.0 Paroxysmal atrial fibrillation; T17.590A Other foreign object in bronchus causing asphyxiation, initial encounter; C34.81 Malignant neoplasm of overlapping sites of right bronchus and lung; I25.10 Atherosclerotic heart disease of native coronary artery without angina pectoris; F10.11 Alcohol abuse, in remission; Z99.81 Dependence on supplemental oxygen; Y84.8 Other medical procedures as the cause of abnormal reaction of the patient, or of later complication, without mention of misadventure at the time of the procedure; K27.9 Peptic ulcer, site unspecified, unspecified as acute or chronic, without hemorrhage or perforation; Y92.230 Patient room in hospital as the place of occurrence of the external cause; D50.9 Iron deficiency anemia, unspecified; J98.11 Atelectasis; I10 Essential (primary) hypertension